=== PATIENT | female | born 2000 | race Caucasian/White ===

== ENCOUNTER 2023-06-05 12:49 | Emergency (ER) | payer OTHER, SELFPAY ==
--- NOTE | ~2023-06-05 | XR_ITS ---
EXAMINATION: XR ABDOMEN KUB CLINICAL INDICATION: Constipated, left upper quadrant abdominal pain COMPARISON: None available. TECHNIQUE: AP view of the abdomen. FINDINGS: The bowel gas pattern is normal with no evidence of ileus or obstruction. No unusual soft tissue calcifications are noted. The bones are unremarkable. XR/XR KUB IMPRESSION: Normal abdominal radiographs.
[2023-06-05 12:59] VITALS: BP 137/77; PULSE 71; RESP 16; TEMP 36.6; O2SAT 99; BMI 36.3
--- NOTE | 2023-06-05 12:59 | ED.GENADULT ---
HPI - General Adult General Chief complaint: Abdominal Pain Stated complaint: abd pain Time Seen by Provider: 06/05/23 13:17 Source: patient and family Mode of arrival: ambulatory History of Present Illness HPI narrative: 22-year-old female comes in with intermittent left upper quadrant pain and nausea since this morning, but this is been an ongoing problem for a couple of days and she was seen at [place] last week for constipation, given a series of stool softeners but states that she has not had a bowel movement since . She otherwise denies any fever, chills, urinary symptoms. Related Data Allergies Allergy/AdvReac Type Severity Reaction Status Date / Time Penicillins [PCN] Allergy Unknown Verified 06/05/23 12:59 Review of Systems Review of Systems: Pertinent positives and negatives as stated in HPI [facility] Past Medical History Source: nursing notes reviewed Social History Social History Advance Directives: No Advance Directives Information Provided: No Physical Exam ED Vital Signs: Vital Signs - 24 hr 06/05/23 12:59 06/05/23 15:32 Temperature 97.9 F 99.1 F Pulse Rate 71 66 Respiratory Rate 16 18 Blood Pressure 137/77 138/68 Pulse Oximetry 99 97 Oxygen Delivery Method Room Air Room Air BMI result Body Mass Index 36.3 VITAL SIGNS: Reviewed. GENERAL: Well developed, well nourished, in no acute distress. HEAD: Normocephalic/atraumatic EYES: PERRLA, EOMI LUNGS: Normal breath sounds. No adventitious sounds or accessory muscle use. SpO2<99> CARDIOVASCULAR: Regular rate and rhythm without noted murmurs ABDOMEN: Soft, generalized discomfort, not peritonitic, non-distended with bowel sounds. MUSCULOSKELETAL: No tenderness, deformities, or effusions noted on gross inspection. EXTREMITIES: No cyanosis, clubbing or edema. SKIN: Inspection of the skin reveals no rashes NEUROLOGIC: Alert and oriented x 4. Strength and sensation to light touch were grossly intact x 4. Course Course Course Narrative: This is a rapid medical exam: Additional HPI, ROS, PE not included below will be deferred to primary provider. Patient is a 22-year-old female presenting to the emergency department with complaint of LUQ abdominal pain. Was seen at [place] for lower abdominal pain, told she was constipated, had an enema there and was prescribed stool softners but still has not had a normal bowel movement. Today developed the LUQ pain with associated nausea, denies vomiting. Plan: labs, UA, KUB Medications Administered Discontinued Medications Generic Name Dose Route Start Last Admin Trade Name Rickey PRN Reason Stop Dose Admin Sodium Chloride 1,000 mls @ 999 mls/hr 06/05/23 13:45 06/05/23 15:25 Ns IV 06/05/23 14:45 Infused .Q1H1M JAYLENE Infusion Medical Decision Making Medical Decision Making [facility] Narrative: 22-year-old female with history and clinical presentation, DDX: Constipation/fecal impaction, low clinical suspicion for intra-abdominal infectious etiology. I reviewed all investigations and hematologic indices are negative for leukocytosis/left shift/anemia/thrombocytopenia. Chemistry indices do not demonstrate an RENETTA or electrolyte/liver enzyme derangements. Beta hCG is undetectable. Urinalysis without evidence of UTI. KUB does not demonstrate evidence to suggest significant stool burden and there is a normal bowel-gas pattern. I did discuss with the patient and her family member at bedside the results and she is otherwise discharged home with presumptive side effects from current menstruation but not ruling out the possibility of an endometriosis. Differential Diagnosis Differential Diagnoses: The differential diagnosis associated with the presentation includes Please see the discussion above Admission/Observation Consideration of admission/observation: Escalation of care including admission/observation considered Please see the discussion above Lab Data MDM Lab Attestation statement: I reviewed the patient's lab results. Please see the discussion above 06/05/23 13:42 06/05/23 13:42 Labs: Lab Results 06/05/23 06/05/23 Range/Units 13:42 15:15 WBC 7.3 (4.8-10.8) X10*3/uL RBC 4.69 (4.20-5.50) X10*6/uL Hgb 14.6 (12.0-16.0) g/dl Hct 41.9 (37.0-47.0) % MCV 89.3 (80.0-98.0) fL MCH 31.1 (27.0-33.0) pg MCHC 34.8 (31.0-35.0) g/dl RDW 11.9 (11.0-16.0) % Plt Count 270 (160-400) X10*3/uL MPV 11.9 (9.4-12.3) fL Immature Gran % (Auto) 0.3 (0.0-0.4) % Neut % (Auto) 70.7 (45-73) % Lymph % (Auto) 23.5 (20-40) % [place] % (Auto) 5.0 (2-11) % Eos % (Auto) 0.1 (0-4) % Baso % (Auto) 0.4 (0-2) % Lymph # (Auto) 1.7 (1.2-4.9) X10*3/uL [place] # (Auto) 0.4 (0.1-1.2) X10*3/uL Eos # (Auto) 0.0 (0.0-0.4) X10*3/uL Baso # (Auto) 0.0 (0.0-0.2) X10*3/uL Abs Immat Gran (auto) 0.02 (0.00-0.03) X10*3/uL Absolute Neuts (auto) 5.2 (2.0-8.3) x10*3/uL Absolute Nucleated RBC 0.000 (0.0-0.012) X10*3/uL Nucleated RBC % (auto) 0.0 (0.0-0.2) /100WBC Sodium 139 (135-145) mmol/L Potassium 3.9 (3.3-5.1) mmol/L Chloride 109 H (96-108) mmol/L Carbon Dioxide 22 (22-29) mmol/L Anion Gap 12 (12-20) BUN 8 L (9-16) mg/dL Creatinine 0.80 (0.5-1.4) mg/dL Estim Creat Clear Calc 121.9 Estimated GFR > 60 Random Glucose 99 (60-115) mg/dL Calcium 9.5 (8.4-10.2) mg/dL Total Bilirubin 0.6 (0.0-1.0) mg/dL AST 26 (5-31) U/L ALT 41 H (0-31) U/L Alkaline Phosphatase 48 (39-117) U/L Total Protein 8.4 H (6.5-8.0) g/dL Albumin 4.4 (3.5-5.0) g/dL Beta HCG, Quant < 2 mIU/mL Urine Color Yellow Urine Appearance Clear Urine pH 5.5 (5.0-9.0) Ur Specific [place] 1.010 (1.005-1.025) Urine Protein Negative (Neg-Trace) mg/dL Urine Glucose (UA) Negative (Negative) mg/dL Urine Ketones Negative (Negative) mg/dL Urine Blood Large (3+) H (Negative) Urine Nitrite Negative (Negative) Ur Leukocyte Esterase Negative (Negative) Urine RBC >20 H (0-2) /HPF Urine WBC 0-5 (0-5) /HPF Ur Squamous Epith Cells 0-2 (0-2) /HPF Urine Bacteria None Seen (None Seen) Hyaline Casts 0-2 (0-2) /LPF Radiology Impression Discussion of test interpretation with radiology: I have reviewed the radiologist's reading. Radiologist Impression: Please see the discussion above Critical Care Time Critical Care Time Critical Care Time: Yes Total Critical Care Time: 30 Attestation: I personally attest to this time spent taking care of the patient. Discharge Plan Discharge Clinical Impression: Abdominal discomfort Patient Disposition: Home, Self-Care Instructions: Abdominal Pain (ED) Additional Instructions: 1. Please stop all of the laxatives. Try to manage any constipation with dietary changes. 2. Follow-up with your primary care doctor on Wednesday morning. Return to the ER for any worsening symptoms. Referrals: Magali Duran NP [Primary Care Provider] -
[2023-06-05] MEDS: 0.9 % Sodium Chloride 1,000 ML 999 ML IV (13:43)
--- NOTE | 2023-06-05 13:46 | PC.NURSE ---
resting quietly in room. iv established, labs drawn and sent. call pitts within reach, fluids infusing.
[2023-06-05 13:48] LABS: MANUAL DIFF FLAG NO
[2023-06-05 13:53] LABS: Basophils Percent Auto 0.4 % (0-2); Eosinophils Percent Auto 0.1 % (0-4); Hematocrit 41.9 % (37.0-47.0); Hemoglobin 14.6 g/dl (12.0-16.0); Imm Gran Abs Auto 0.02 X10*3/uL (0.00-0.03); Imm Gran Pct Auto 0.3 % (0.0-0.4); Lymphocytes Absolute Auto 1.7 X10*3/uL (1.2-4.9); Lymphocytes Percent Auto 23.5 % (20-40); Mean Corpuscular HGB Conc 34.8 g/dl (31.0-35.0); Mean Corpuscular Hemoglobin 31.1 pg (27.0-33.0); Mean Corpuscular Volume 89.3 fL (80.0-98.0); Mean Platelet Volume 11.9 fL (9.4-12.3); Monocytes Absolute Auto 0.4 X10*3/uL (0.1-1.2); Neutrophils Absolute Auto 5.2 x10*3/uL (2.0-8.3); Neutrophils Percent Auto 70.7 % (45-73); Platelet Count 270 X10*3/uL (160-400); Red Blood Count 4.69 X10*6/uL (4.20-5.50); Red Cell Distribution Width 11.9 % (11.0-16.0); White Blood Count 7.3 X10*3/uL (4.8-10.8)
[2023-06-05 14:10] LABS: Alanine Aminotransferase 41 U/L (0-31); Albumin Level 4.4 g/dL (3.5-5.0); Alkaline Phosphatase 48 U/L (39-117); Anion Gap 12 (12-20); Aspartate Amino Transferase 26 U/L (5-31); Bilirubin Total 0.6 mg/dL (0.0-1.0); Blood Urea Nitrogen 8 mg/dL (9-16); Calcium 9.5 mg/dL (8.4-10.2); Carbon Dioxide 22 mmol/L (22-29); Chloride 109 mmol/L (96-108); Creatinine Clr Calc Pharmacy 121.9; Estimated Glomerular Filt Rate > 60; Glucose Random 99 mg/dL (60-115); Potassium 3.9 mmol/L (3.3-5.1); Sodium 139 mmol/L (135-145); Total Protein 8.4 g/dL (6.5-8.0)
[2023-06-05 14:17] LABS: HCG Quantitative < 2 mIU/mL
[2023-06-05 15:32] VITALS: BP 138/68; PULSE 66; RESP 18; TEMP 37.3; O2SAT 97
[2023-06-05 15:33] LABS: Appearance Urine Clear; Color Urine Yellow; Glucose Urine UA Negative (Negative); Leukocyte Esterase Urine Negative (Negative); Nitrite Urine Negative (Negative); PH 5.5 (5.0-9.0); UMIC TRIGGER UACC YES; Urine Blood Large (3+) (Negative); Urine Ketones Negative (Negative); Urine Protein Negative (Neg-Trace)
[2023-06-05 15:36] LABS: Bacteria Urine None Seen (None Seen); Hyaline Casts Urine 0-2 /LPF (0-2); RBC Urine >20 /HPF (0-2); Squamous Epithelial Cell Urine 0-2 /HPF (0-2); WBC Urine 0-5 /HPF (0-5)
== END 2023-06-05 16:50 | disposition home or self-care (01) ==
PROVIDERS: Registered Nurse Emergency; Emergency Provider Student in an Organized Health Care Education/Training Program; PCP Nurse Practitioner Family
DX: R10.12 Left upper quadrant pain (principal)
CPT/HCPCS: 36415; 74018; 80053; 81001; 84702; 85025; 96360; 96361; 99284; 99285

== ENCOUNTER 2023-07-19 20:05 | Emergency (ER) | payer OTHER, SELFPAY ==
--- NOTE | 2023-07-19 | ECG_ITS ---
Test Reason : CHEST PAIN Blood Pressure : / mmHG Vent. Rate : 071 BPM Atrial Rate : 071 BPM P-R Int : 172 ms QRS Dur : 096 ms QT Int : 414 ms P-R-T Axes : 030 017 025 degrees QTc Int : 449 ms Normal sinus rhythm with sinus arrhythmia Nonspecific T wave abnormality Abnormal ECG No previous ECGs available Referred By: Generic ED Physician Electronically Signed By:ES MACDONALD
--- NOTE | 2023-07-19 20:20 | MHC.EDTECH ---
PATIENT IS REQUESTING A BED IN ORDER TO DRAWN HER LABS ,RN IN TRIAGE IS AWARE
[2023-07-19 20:22] VITALS: BP 148/82; PULSE 63; RESP 18; TEMP 36.9; O2SAT 99; BMI 34.3
[2023-07-19 20:34] VITALS: PULSE 81; RESP 16; O2SAT 100
[2023-07-19 21:09] LABS: Influenza A PCR NEGATIVE (Negative); Influenza B PCR NEGATIVE (Negative); Resp Syncy Virus RNA Qual PCR NEGATIVE (Negative); SARS COV2 PCR INHOUSE NEGATIVE (Negative)
[2023-07-19 21:25] LABS: MANUAL DIFF FLAG NO
[2023-07-19 21:28] LABS: Hematocrit 42.2 % (37.0-47.0); Hemoglobin 14.5 g/dl (12.0-16.0); Red Blood Count 4.78 X10*6/uL (4.20-5.50); White Blood Count 8.7 X10*3/uL (4.8-10.8)
--- NOTE | 2023-07-19 21:36 | ED_ITS ---
HPI - Chest Pain General Chief Complaint: Chest Pain Stated Complaint: chest pain Time Seen by Provider: 07/19/23 21:28 Source: patient Mode of arrival: ambulatory Limitations: no limitations History of Present Illness HPI narrative: Patient comes to the emergency room complaining of heart rate that has been intermittently low and high . Patient states that she has mild chest pain, no shortness of breath. Patient denies being sick lately, no URI or UTI symptoms, no nausea vomiting or diarrhea. Related Data Allergies Allergy/AdvReac Type Severity Reaction Status Date / Time Penicillins [PCN] Allergy Unknown Verified 07/19/23 20:21 Review of Systems 2 Review of Systems: Constitutional : No Weight loss, No Fever, No Chills, No Night Sweats, No Fatigue, No Malaise ENT/Mouth : No Hearing loss, No Ear Pain, No Nasal Congestion, No Sinus Pain, No Hoarseness, No sore throat, No Rhinorrhea, No Swallowing Difficulty Eyes: No Eye Pain, No Swelling, No Redness, No Foreign Body, No Discharge, No Vision Changes Cardiovascular : Complaining of mild Chest Pain, No SOB, No Dyspnea on Exertion, No Orthopnea, No Edema, complaining of low heart rate and tachycardia Respiratory : No Cough, No Sputum, No Wheezing, No Smoke Exposure, No Dyspnea Gastrointestinal : No Nausea, No Vomiting, No Diarrhea, No Constipation, No abdominal Pain, No Hematochezia, No Melena Genitourinary : no irregular bleeding, No Dysuria, No Urinary Frequency, No Hematuria, No Urinary Incontinence, No Urgency, No Flank Pain, No Urinary Flow Changes, No Hesitancy Musculoskeletal : No joint pain, No Myalgias, No Joint Swelling Skin : No Skin Lesions, No rash Neuro : No Weakness, No Numbness, No Paresthesias, No Loss of Consciousness, No Dizziness, No Headache Psych : No Anxiety/Panic, No Depression, No SI/HI/AH/VH, No Social Issues, Heme/Lymph: No Bruising, No Bleeding,No Lymphadenopathy Endocrine : No Polyuria, No Polydipsia, No Temperature Intolerance PMFSH Social History Social History Advance Directives: No Advance Directives Information Provided: No Physical Exam 2 Vital Signs: Vital Signs: Last Vital Signs Temp 98.5 F 07/19/23 20:22 Pulse 81 07/19/23 20:34 Resp 16 07/19/23 20:34 BP 148/82 H 07/19/23 20:22 Pulse Ox 100 07/19/23 20:34 O2 Del Method Room Air 07/19/23 20:34 BMI result Body Mass Index 34.3 Const: Other: Appearance: Alert. Oriented X3. No acute distress. Eyes: Pupils equal, round and reactive to light. ENT: Pharynx normal. Neck: Normal inspection. Neck supple. No lymph nodes noted. No crepitus CVS: Normal heart rate and rhythm. Pulses normal. Normal S1 and S2 Respiratory: No respiratory distress. Breath sounds normal. No Wheezing. No rales Abdomen: Soft and nontender. No rigidity. No distention. Skin: Skin warm and dry. Normal skin color. Normal skin turgor. Extremities: No lower extremity edema. No Lacerations. No Rash Neuro: Oriented X 3. No motor deficit. No sensory deficit. Moving all extremities. No slurred speech. CN 2 through 12 grossly intact Psych: calm, cooperative, normal affect Course Course Course Narrative: -I was informed by the patient's nurse that patient nearly passed out with the thought that she was going to get her blood drawn Medications Administered Discontinued Medications Generic Name Dose Route Start Last Admin Trade Name Freq PRN Reason Stop Dose Admin Potassium Chloride 60 meq 07/19/23 22:17 07/19/23 22:28 Potassium Chloride Packet 20 Meq Packet PO 07/19/23 22:18 60 meq ONCE ONE Administration Medical Decision Making Medical Decision Making [facility] Narrative: -my interpretation of labs: Normal hematology, chemistry shows a potassium of 3.1, normal troponin -patient's potassium was repleted p.o. -my interpretation of EKG: Normal sinus rhythm, no ST segment depression or elevation, nonspecific T-wave inversion in V1 V2, QTC 449 -at this time, patient asymptomatic. -patient was in the monitor, throughout the entire ED stay, patient was not tachycardic or bradycardic -I discussed with the patient and her mother who is at bedside that if the patient continues having arrhythmias, unclear heart , a referral for Cardiology for a Holter monitor through her primary care physician would be beneficial Differential Diagnosis Differential Diagnoses: The differential diagnosis associated with the presentation includes (Anxiety, palpitations, faulty apple watch monitor) Lab Data [facility] Lab Attestation statement: I reviewed the patient's lab results. 07/19/23 21:22 07/19/23 21:22 Labs: Lab Results 07/19/23 07/19/23 Range/Units 20:20 21:22 WBC 8.7 (4.8-10.8) X10*3/uL RBC 4.78 (4.20-5.50) X10*6/uL Hgb 14.5 (12.0-16.0) g/dl Hct 42.2 (37.0-47.0) % MCV 88.3 (80.0-98.0) fL MCH 30.3 (27.0-33.0) pg MCHC 34.4 (31.0-35.0) g/dl RDW 11.8 (11.0-16.0) % Plt Count 285 (160-400) X10*3/uL MPV 11.4 (9.4-12.3) fL Immature Gran % (Auto) 0.2 (0.0-0.4) % Neut % (Auto) 65.2 (45-73) % Lymph % (Auto) 29.0 (20-40) % [place] % (Auto) 5.3 (2-11) % Eos % (Auto) 0.1 (0-4) % Baso % (Auto) 0.2 (0-2) % Lymph # (Auto) 2.5 (1.2-4.9) X10*3/uL [place] # (Auto) 0.5 (0.1-1.2) X10*3/uL Eos # (Auto) 0.0 (0.0-0.4) X10*3/uL Baso # (Auto) 0.0 (0.0-0.2) X10*3/uL Abs Immat Gran (auto) 0.02 (0.00-0.03) X10*3/uL Absolute Neuts (auto) 5.7 (2.0-8.3) x10*3/uL Absolute Nucleated RBC 0.000 (0.0-0.012) X10*3/uL Nucleated RBC % (auto) 0.0 (0.0-0.2) /100WBC Sodium 141 (135-145) mmol/L Potassium 3.1 L D (3.3-5.1) mmol/L Chloride 107 (96-108) mmol/L Carbon Dioxide 26 (22-29) mmol/L Anion Gap 11 L (12-20) BUN 7 L (9-16) mg/dL Creatinine 0.85 (0.5-1.4) mg/dL Estim Creat Clear Calc 111.3 Estimated GFR > 60 Random Glucose 105 (60-115) mg/dL Calcium 10.1 D (8.4-10.2) mg/dL Total Bilirubin 0.7 (0.0-1.0) mg/dL AST 20 (5-31) U/L ALT 44 H (0-31) U/L Alkaline Phosphatase 53 (39-117) U/L Troponin I High Sens < 2.7 (<3.5-17.0) ng/L Total Protein 8.5 H (6.5-8.0) g/dL Albumin 4.8 (3.5-5.0) g/dL Beta HCG, Quant < 2 mIU/mL Influenza Type A (PCR) NEGATIVE (Negative) Influenza Type B (PCR) NEGATIVE (Negative) RSV RNA Qual (PCR) NEGATIVE (Negative) SARS-CoV-2 RNA (RT-PCR) NEGATIVE (Negative) Independent Interpretation I performed an independent interpretation of an: EKG Discharge Plan Discharge Clinical Impression: Atypical chest pain Patient Disposition: Home, Self-Care Instructions: Chest Pain (ED) Additional Instructions: Please follow-up with your primary care physician tomorrow. If you have any worsening or new symptoms, please return to the emergency room or call 911
[2023-07-19 21:48] LABS: Alanine Aminotransferase 44 U/L (0-31); Albumin Level 4.8 g/dL (3.5-5.0); Alkaline Phosphatase 53 U/L (39-117); Anion Gap 11 (12-20); Aspartate Amino Transferase 20 U/L (5-31); Bilirubin Total 0.7 mg/dL (0.0-1.0); Blood Urea Nitrogen 7 mg/dL (9-16); Calcium 10.1 mg/dL (8.4-10.2); Carbon Dioxide 26 mmol/L (22-29); Chloride 107 mmol/L (96-108); Creatinine Clr Calc Pharmacy 111.3; Estimated Glomerular Filt Rate > 60; Glucose Random 105 mg/dL (60-115); Potassium 3.1 mmol/L (3.3-5.1); Sodium 141 mmol/L (135-145); Total Protein 8.5 g/dL (6.5-8.0); Troponin-I High Sensitivity < 2.7 ng/L (<3.5-17.0)
[2023-07-19 21:58] LABS: HCG Quantitative < 2 mIU/mL
[2023-07-19 22:20] LABS: Basophils Percent Auto 0.2 % (0-2); Eosinophils Percent Auto 0.1 % (0-4); Imm Gran Abs Auto 0.02 X10*3/uL (0.00-0.03); Imm Gran Pct Auto 0.2 % (0.0-0.4); Lymphocytes Absolute Auto 2.5 X10*3/uL (1.2-4.9); Mean Corpuscular HGB Conc 34.4 g/dl (31.0-35.0); Mean Corpuscular Hemoglobin 30.3 pg (27.0-33.0); Mean Corpuscular Volume 88.3 fL (80.0-98.0); Mean Platelet Volume 11.4 fL (9.4-12.3); Monocytes Absolute Auto 0.5 X10*3/uL (0.1-1.2); Monocytes Percent Auto 5.3 % (2-11); Neutrophils Absolute Auto 5.7 x10*3/uL (2.0-8.3); Neutrophils Percent Auto 65.2 % (45-73); Platelet Count 285 X10*3/uL (160-400); Red Cell Distribution Width 11.8 % (11.0-16.0)
[2023-07-19] MEDS: Potassium Chloride Packet 20 MEQ PACKET 60 MEQ PO (22:28)
[2023-07-19 23:41] VITALS: BP 124/62; PULSE 73; RESP 20; TEMP 36.7; O2SAT 96
[2023-07-19 23:47] VITALS: BP 124/62; PULSE 73; RESP 20; TEMP 36.7; O2SAT 96
== END 2023-07-19 23:48 | disposition home or self-care (01) ==
PROVIDERS: Emergency Provider Emergency Medicine
DX: R07.89 Other chest pain (principal); Z11.52 Encounter for screening for COVID-19; Z20.828 Contact with and (suspected) exposure to other viral communicable diseases
CPT/HCPCS: 0241U; 36415; 80053; 84484; 84702; 85025; 93005; 99283; 99285

== ENCOUNTER → 2023-07-19 20:09 | Outpatient (BNV) | payer OTHER, SELFPAY | PROVIDERS: Emergency Provider Emergency Medicine; Visit Provider Internal Medicine | DX: R07.9 Chest pain, unspecified (principal) | CPT/HCPCS: 93010 ==

== ENCOUNTER 2023-08-26 07:23 | Outpatient (AMB) | payer OTHER, SELFPAY ==
--- NOTE | 2023-08-26 07:24 | A.OFFVIS_ITS ---
Vital Signs 08/26/23 07:45 Height 5 ft 4 in Weight 193 lb BMI 33.1 BP 115/66 Blood Pressure Location Lt brachial Position Sitting Pulse 73 Intake Visit Reasons: Constipation/ abd pain Intake Note: Patient new consult for abdominal pain and constipation Patient cc: lower and upper abdominal pain with bloating and painful gasses, constipation on and off, patient went to ED due her abdominal pain and they did a X ray and abnormal lab work. [employer] Room Operator Required: No Accompanied by: Mother Allergies Penicillins [PCN] Allergy (Verified 02/11/24 09:21) Unknown HPI HPI Constipation/ abd pain: Details: GI clinic visit for this 22Y F for evaluation of abdominal pain and constipation LABS IN [facility] : Reviewed IMAGING STUDIES: 06/05/23 KUB SHOWED: The bowel gas pattern is normal with no evidence of ileus or obstruction. No unusual soft tissue calcifications are noted. The bones are unremarkable. ENDOSCOPIC STUDIES: TODAY'S VISIT: Had intermittent constipation More frequent since Jun, 2023. Usually 1-2 times a day with intermittent straining with hard stools Takes Miralax once a day prn Can have lower abdominal/Pelvic area pain 4-6 or 7/10. Has pain atleast once a day and can be sharp and twisting. Pain goes away if she is able to have a BM Can have pain with eating or random. Uses castor oil and heat on the skin which helps the pain Can be related to her periods - tend to become constipated at the begining of her period On GFD x 2 years - consistent sharp pain, jt pains and skin problems. Lost 13 lbs since Jun, 2023 - cut back on snacking and processed foods Patient denies symptoms of heartburn, dysphagia, Occasional nausea and denies vomiting. Denies recent black stools or rectal bleeding. Patient denies major cardiac or pulmonary problems, loud snoring or sleep apnea Denies problems with anesthesia in the past. Denies being on chronic anticoagulation. Patient denies known family history of colon polyps, colon cancer or other GI malignancies. Dad has constipation. Maternal GM being evaluated for possible colon cancer. PAST GI HISTORY BY REVIEW OF MEDICAL RECORDS: 06/05/23 PT SEEN AT [facility] [place]: 22-year-old female comes in with intermittent left upper quadrant pain and nausea since this morning, but this is been an ongoing problem for a couple of days and she was seen at [place] last week for constipation, given a series of stool softeners but states that she has not had a bowel movement since . She otherwise denies any fever, chills, urinary symptoms. 22-year-old female with history and clinical presentation, DDX: Constipation/fecal impaction, low clinical suspicion for intra-abdominal infectious etiology. I reviewed all investigations and hematologic indices are negative for leukocytosis/left shift/anemia/thrombocytopenia. Chemistry indices do not demonstrate an RENETTA or electrolyte/liver enzyme derangements. Beta hCG is undetectable. Urinalysis without evidence of UTI. KUB does not demonstrate evidence to suggest significant stool burden and there is a normal bowel-gas pattern. I did discuss with the patient and her family member at bedside the results and she is otherwise discharged home with presumptive side effects from current menstruation but not ruling out the possibility of an endometriosis PFSH Family History Father Heart disease Diabetes Paternal Grandfather Diabetes Heart disease Paternal Grandmother Diabetes Heart disease Maternal Grandfather Diabetes Heart disease Maternal Grandmother Heart disease Diabetes Social History Household Members: Family Housing: House Alcohol intake: current Alcohol intake frequency: holidays/special occasions only Patient Tobacco Use Status: Never used Tobacco e-Cigarette/Vaping Use: Never Used Current occupational status: employed Cognitive needs: No Hearing needs: No Vision needs: Yes Review of Systems Const Reports fatigue, Denies fever(s), Denies headache(s) and Reports weight loss (15 lbs) Eyes Denies eye discharge and Denies irritation ENT Reports Normal hearing present, Denies dysphagia, Denies dizziness and Denies headache(s) Card Reports chest pain, Denies leg edema, Denies dyspnea on exertion and Reports other (palpitations) Resp Denies cough, Denies dyspnea on exertion and Denies wheezing GI Reports abdominal pain, Reports bloating, Denies change in bowel habits, Reports constipation, Denies dysphagia, Denies heartburn, Reports diarrhea and Reports nausea Denies difficulty voiding, Denies dysuria and Reports other (LMP 08/09/23) Musc Denies back pain and Reports arthralgias Skin/Breast Denies pruritus, Reports rash and Denies jaundice Neuro Reports Normal hearing present, Denies Abnormal speech present, Denies dizziness, Denies headache(s) and Denies seizure-like activity Psych Reports anxiety, Denies depression and Denies panic attacks Endo Denies cold intolerance, Reports fatigue, Denies flushing and Denies heat intolerance [place]/Lymph Denies easy bleeding and Denies easy bruising Aller/Immun Denies wheezing Physical Exam Vital Signs: Last Vital Signs Pulse 73 08/26/23 07:45 BP 115/66 08/26/23 07:45 BMI result Body Mass Index 33.1 Const General: healthy appearing and no acute distress Nutritional Appearance: obese Orientation/consciousness: patient oriented x3 Limitations: no limitations HEENT Head: Yes normal to inspection Ears: hearing grossly normal bilaterally Eyes Sclerae: sclerae normal Pupils: Equal, round and reactive pupils present Neck Neck: Yes normal visual inspection Chest Chest palpation & inspection: normal inspection of the chest Resp Effort & Inspection: normal respiratory effort Auscultation: clear to auscultation bilaterally Cardio Palpation: normal PMI Rate: regular rate Rhythm: regular rhythm Heart sounds: S1 normal heart sound present, S2 normal heart sound present and no murmurs GI Palpation (GI): Soft to palpation, nontender and No hepatosplenomegaly present Auscultation: normal bowel sounds Rectal Exam - Female: deferred Skin General skin exam: no rashes or lesions noted Neuro General: patient oriented x3, gait normal and moves all extremities Cranial nerves: Yes Equal, round and reactive pupils present and Yes Normal hearing present Speech: No Abnormal speech present Psych Appearance: grossly normal Mental Status: mental status grossly normal Assessment & Plan Assessment & Plan (1) Abdominal pain: Code(s): R10.9 - Unspecified abdominal pain Category: Medical (2) Chronic constipation: Code(s): K59.09 - Other constipation Category: Medical (3) Elevated LFTs: Code(s): R79.89 - Other specified abnormal findings of blood chemistry Category: Medical Plan Initial GI clinic visit for this 22 YF with lower abdominal and pelvic pain associated with intermittent constipation More frequent since Jun, 2023. Takes Miralax once a day prn On GFD x 2 years - consistent sharp pain, jt pains and skin problems. Lost 13 lbs since Jun, 2023 - cut back on snacking and processed foods Pt's symptoms are likely due to constipation pre-dominent IBS. She was advised to take senna for constipation. If symptoms persist, she will be scheduled for a colonoscopy for further evaluation. Elevated LFTs -likely due to fatty liver. I will check Hepatitis serologies and an Abd US FU in 6 weeks Orders: Orders Hepatitis B Profile 08/26/23 R10.9 - Unspecified abdominal pain, K59.09 - Other constipation, R79.89 - Other specified abnormal findings of blood chemistry C Reactive Protein 08/26/23 R10.9 - Unspecified abdominal pain, K59.09 - Other constipation, R79.89 - Other specified abnormal findings of blood chemistry Hepatitis C Antibody 08/26/23 R10.9 - Unspecified abdominal pain, K59.09 - Other constipation, R79.89 - Other specified abnormal findings of blood chemistry Liver Panel 08/26/23 R10.9 - Unspecified abdominal pain, K59.09 - Other constipation, R79.89 - Other specified abnormal findings of blood chemistry US abdomen complete 08/26/23 R79.89 - Other specified abnormal findings of blood chemistry, R10.9 - Unspecified abdominal pain Medications: New sennosides-docusate sodium 8.6-50 mg (Senokot-S) 1 tab-cap PO BEDTIME 60 tabs 1RF 60 days K59.09 - Other constipation Coding Level of Care Code New Pt Level 4 (37867) Diagnoses Abdominal pain R10.9 Chronic constipation K59.09 Elevated LFTs R79.89 Time Spent (min) 25
[2023-08-26 07:45] VITALS: BP 115/66; PULSE 73; BMI 33.1
== END 2023-08-26 09:01 | disposition home or self-care (01) ==
PROVIDERS: Visit Provider Internal Medicine Gastroenterology
DX: R10.9 Unspecified abdominal pain (principal); K59.09 Other constipation; R79.89 Other specified abnormal findings of blood chemistry
CPT/HCPCS: 99499

== ENCOUNTER → 2023-08-26 07:23 | Outpatient (BNVA) | payer OTHER, SELFPAY | PROVIDERS: Visit Provider Internal Medicine Gastroenterology ==

== ENCOUNTER 2023-09-13 08:00 | Outpatient (REF) | payer OTHER, SELFPAY ==
--- NOTE | ~2023-09-13 | US_ITS ---
EXAMINATION: US ABDOMEN COMPLETE CLINICAL INFORMATION: Other specified abnormal findings of blood chemistry. Elevated liver enzymes. Abdominal pain. COMPARISON: None. TECHNIQUE: Real-time imaging of the abdominal viscera. FINDINGS: PANCREAS: Normal. ABDOMINAL AORTA: The proximal, mid, and distal segments are normal in caliber. INFERIOR VENA CAVA: Visualized portions are normal. LIVER: The liver is normal in size. The liver contour is normal. There is diffuse increased liver parenchymal echogenicity, consistent with hepatic steatosis. There are some sparing along the gallbladder. No focal hepatic lesion. There is no intrahepatic biliary duct dilatation seen. GALLBLADDER: Normal. The gallbladder is physiologically distended without evidence of stones, sludge, polyps, wall thickening or pericholecystic fluid. COMMON BILE DUCT: Normal in caliber measuring 0.4 cm in diameter. RIGHT KIDNEY: Normal. No hydronephrosis. No renal calculi or focal parenchymal lesions. The kidney measures 11.1 cm in maximum dimension. LEFT KIDNEY: Normal. No hydronephrosis. No renal calculi or focal parenchymal lesions. The kidney measures 10.5 cm in maximum dimension. SPLEEN: Normal. The spleen measures 10.6 cm in maximum dimension. FREE FLUID: None. US/US abdomen complete IMPRESSION: Hepatic steatosis. No explanation for abdominal pain.
== END 2023-09-13 08:01 | disposition home or self-care (01) ==
LOC: HO.US 08:00
PROVIDERS: PCP Nurse Practitioner Family; Visit Provider Internal Medicine Gastroenterology
DX: R10.9 Unspecified abdominal pain (principal); R79.89 Other specified abnormal findings of blood chemistry
CPT/HCPCS: 76700

== ENCOUNTER 2024-01-05 12:56 | Outpatient (REF) | payer OTHER, SELFPAY ==
--- NOTE | ~2024-01-05 | XR_ITS ---
EXAMINATION: XR SHOULDER, LEFT CLINICAL INFORMATION: Left shoulder pain. COMPARISON: None available. TECHNIQUE: AP external rotation, Grashey, scapular Y, and axillary views of the left shoulder. FINDINGS: The bones and soft tissues are normal. No fracture. Glenohumeral and acromioclavicular alignment is anatomic with normal joint space. No abnormal soft tissue calcifications. XR/XR shoulder LT min 2V IMPRESSION: Unremarkable examination. Electronically signed by: Kevin Almaguer MD 01/20/2024 08:34 PM EDT
[2024-01-05 14:45] LABS: Alanine Aminotransferase 29 U/L (0-31); Albumin Level 4.7 g/dL (3.5-5.0); Alkaline Phosphatase 48 U/L (39-117); Aspartate Amino Transferase 17 U/L (5-31); Bilirubin Direct 0.3 mg/dL (0.0-0.5); Bilirubin Total 0.7 mg/dL (0.0-1.0); C Reactive Protein < 0.10 mg/dL (< or = 0.50); Total Protein 8.1 g/dL (6.5-8.0); Uric Acid 5.7 mg/dL (2.4-5.7)
[2024-01-05 14:54] LABS: Rheumatoid Factor < 13.0 IU/mL (<15.0)
[2024-01-05 14:58] LABS: Erythrocyte Sedimentation Rate 10 MM/HR (0-20)
[2024-01-06 08:08] LABS: HBS Num1 18.36 mIU/mL (0-7.99); HBsAGNum1 0.27 S/CO (0.00-0.99); Hepatitis B Core Antibody Nonreactive (Nonreactive); Hepatitis B Surface Antigen Negative (Negative); ~HepC Num1 0.08 S/CO (0.00-0.79); ~Hepatitis B Surface Antibody REACTIVE (Nonreactive); ~Hepatitis C Antibody Nonreactive (Nonreactive)
[2024-01-06 18:53] LABS: Lyme Abs Screen <0.90 index
[2024-01-10 11:50] LABS: Anti Nuclear Antibody Screen NEGATIVE (NEGATIVE)
== END 2024-01-05 12:57 | disposition home or self-care (01) ==
LOC: HO.XRAY 12:56
PROVIDERS: Internal Medicine Gastroenterology; PCP Internal Medicine; Visit Provider Psychiatry & Neurology Neurology
DX: R10.9 Unspecified abdominal pain (principal); K59.09 Other constipation; R79.89 Other specified abnormal findings of blood chemistry; M25.512 Pain in left shoulder
CPT/HCPCS: 36415; 73030; 80076; 84550; 85652; 86038; 86140; 86431; 86617; 86618; 86704; 86706; 86803; 87340

== ENCOUNTER 2024-02-11 09:11 | Outpatient (AMB) | payer OTHER, SELFPAY ==
[2024-02-11 09:15] VITALS: BP 122/76; PULSE 72; O2SAT 96; BMI 34.1
--- NOTE | 2024-02-11 09:15 | A.OFFPC_ITS ---
Vital Signs 02/11/24 09:15 Height 5 ft 4 in Weight 198 lb 8 oz BMI 34.1 BP 122/76 Blood Pressure Location Lt brachial Position Sitting Pulse 72 Pulse Source Pulse Oximeter Pulse Oximetry (%) 96 Oxygen Delivery Method Room Air Intake Visit Reasons: Annual PE Allergies Penicillins [PCN] Allergy (Verified 02/11/24 09:21) Unknown Medication List - Last Reconciled 02/11/24 by Jacky Hickey MD famotidine 40 mg PO DAILY Tobacco use date assessed: 02/11/24 Dental Screening Dental Screen Date: 02/11/24 Did you have a dental visit in the last 12 months?: Yes Did you have a dental problem in the last 6 months where you did not have access to dental care?: No Was dental information given to patient?: Patient has dentist HPI Annual PE HPI Details Patient is 23-year-old female came in today for establish care visit and physical exam History of constipation , doing well at this time History of left shoulder pain which started 1 month ago, patient has been evaluated by [facility] Prednisone script was given and physical therapy was ordered, however patient did not take the medication or the physical therapy Continued to have discomfort which feels tight when she lifts her arm She says that she will start the physical therapy at home History of eczema which flares up with certain foods Like peanut, tomato, dairy, if she avoids those foods then rash is manageable I have sent clobetasol cream for the patient, patient is to start taking that at night for a week and then stop if rash flare-up again she may repeat the cycle Due to food sensitivity patient continued to have cramping in her abdomen She says that sometimes the cramping is close to her periods, she has a diagnosis of endometriosis as well from previous providers However patient does not want to see an OBGYN Patient admits to feeling anxious, and also have panic attack sometimes Which present with tightness in her chest, palpitations, and difficulty breathing She is willing to start medication for that I have sent Lexapro 5 mg tablet for the patient Labs done in July and recently reviewed Patient says that she had full set of labs done May of this year She has provided me with those records, I will review that as well. BMI is elevated we will discuss that at her next visit Follow-up 6 weeks PFS Family History Father Heart disease Diabetes Paternal Grandfather Diabetes Heart disease Paternal Grandmother Diabetes Heart disease Maternal Grandfather Diabetes Heart disease Maternal Grandmother Heart disease Diabetes Social History Household Members: Family Housing: House Alcohol intake: current Alcohol intake frequency: holidays/special occasions only Patient Tobacco Use Status: Never used Tobacco e-Cigarette/Vaping Use: Never Used Current occupational status: employed Cognitive needs: No Hearing needs: No Vision needs: Yes Questionnaire PHQ-9 Over the last 2 weeks, how often have you been bothered by any of the following problems? 1. Little interest or pleasure in doing things: several days 2. Feeling down, depressed, or hopeless: not at all 3. Trouble falling or staying asleep, or sleeping too much: several days 4. Feeling tired or having little energy: nearly every day 5. Poor appetite or overeating: not at all 6. Feeling bad about yourself - or that you are a failure or have let yourself or your family down: not at all 7. Trouble concentrating on things, such as reading the newspaper or watching television: more than half the days 8. Moving or speaking so slowly that other people could have noticed. Or the opposite - being so fidgety or restless that you have been moving around a lot more than usual: not at all 9. Thoughts that you would be better off or of hurting yourself in some way: not at all Total score: 7 Depression Screening Interpretation: Negative Depression Screening Done: Yes [id number] - PHQ-9 Billing: Yes Source: Developed by Drs. Hollis Burrell, Tiff Crystal, Ignacio Forbes and colleagues, with an educational yashira from [employer]. Thrive Questionnaire Date Thrive assessed: 02/11/24 I am a: Patient What is your living situation today?: I have a steady place to live Within the past 12 months, did the food you bought not last and you didn't have the money to get more?: Never true Within the past 12 months, did you worry whether your food would run out before you got money to buy more?: Never true Do you have trouble paying for medicines?: No Do you have trouble getting transportation to medical appointments?: No Do you have trouble paying your heating and electricity bill?: No Do you have trouble taking care of your child, family member or friend?: No Do you have trouble with day-to-day activities such as bathing, preparing meals, shopping, managing finances, etc.?: No Are you currently unemployed and looking for a job?: No Are you interested in more education?: No Please select the resources that you would like help with: None Currently or been in a relationship where the following occur: No concerns reported THRIVE Score: 0 AUDIT C Alcohol Use Questionnaire (AUDIT-C) 1. How often do you have a drink containing alcohol?: Never 3. How often do you have six or more drinks on one occasion?: Never Total Score: 0 Score Reviewed/Action Taken: Yes ANTON-7 AMB Questionnaire ANTON-7 Date ANTON - 7 assessed: 02/11/24 Feeling nervous, anxious, or on edge: 3 = Nearly every day Not being able to stop or control worryin = More than half the days Worrying too much about different things: 3 = Nearly every day Trouble relaxin = More than half the days Being so restless that it is hard to sit still: 2 = More than half the days Becoming easily annoyed or irritable: 1 = Several days Feeling afraid as if something awful might happen: 2 = More than half the days Total ANTON-7 score (0-4 normal; 5-9 mild; 10-14 moderate; 15-21 severe): 15 Source: Developed by Drs. Hollis Burrell, Tiff Crystal, Ignacio Forbes and colleagues, with an educational yashira from [employer]. ANTON-7 Assessment Billing ANTON-7 Assessment Tool: ANTON-7 Assessment 32926 Review of Systems Const Denies chills, Denies fever(s) and Denies headache(s) Eyes Denies blurry vision ENT Denies headache(s), Denies nasal discharge, Denies nasal obstruction, Denies odynophagia and Denies sinus pain Card Denies chest pain at rest and Denies chest pain with activity Resp Denies cough and Denies hemoptysis GI Denies diarrhea, Denies odynophagia, Denies vomiting and Denies hematemesis Reports as per HPI Musc Denies abnormal gait Skin/Breast Reports as per HPI Neuro Denies Neuro-related abnormal movements, Denies Abnormal speech present, Denies abnormal gait, Denies headache(s) and Denies Sensory deficit (Neuro) Psych Denies mood swings and Denies paranoia Endo Reports as per HPI Cordell/Lymph Reports as per HPI Aller/Immun Reports as per HPI Physical exam (Primary Care) Vital Signs: Last Vital Signs Pulse 72 02/11/24 09:15 BP 122/76 02/11/24 09:15 Pulse Ox 96 02/11/24 09:15 Oxygen Delivery Method Room Air 02/11/24 09:15 BMI result Body Mass Index 34.1 Tobacco/Smoking Status: Tobacco use Status Tobacco use date assessed 02/11/24 02/11/24 09:23 Patient Tobacco Use Status Never used Tobacco 02/11/24 09:16 e-Cigarette/Vaping Use Never Used 02/11/24 09:23 PHQ-9: PHQ-9 Score PHQ-9: Total score 7 02/11/24 09:49 Depression Screening Interpretation: Negative Thrive Assessment: Date of Thrive Assessment Date Thrive assessed 02/11/24 02/11/24 09:23 Currently or been in a relationship where the following occur: No concerns reported Const General: cooperative, comfortable and no acute distress Orientation/consciousness: patient oriented x3 HENMT Head: Yes normocephalic and Yes atraumatic Eyes General: appearance normal, both eyes and all related structures Pupils: Equal, round and reactive pupils present EOM: EOMs intact bilaterally Neck Neck: Yes supple and No lymphadenopathy Thyroid: Thyroid normal Lymphatic: no lymphadenopathy noted Resp Effort & Inspection: normal respiratory effort and able to speak in complete sentences Auscultation: clear to auscultation bilaterally Cardio Heart sounds: S1 normal heart sound present and S2 normal heart sound present GI Palpation (GI): Soft to palpation and nontender Auscultation: normal bowel sounds General: Yes no CVA tenderness Back/Spine/Pelvis Back: no CVA tenderness Skin Other: Eczematous rash right elbow posterior aspect General skin exam: elasticity normal and turgor normal Neuro General: patient oriented x3 and gait normal Cranial nerves: Yes Equal, round and reactive pupils present Speech: No Abnormal speech present Sensory Exam: No Sensory deficit (Neuro) Coordination: tandem gait normal and Romberg test negative Extrem General: Yes normal exam except as noted and No edema Coding Level of Care Code New Pt Level 4 (40300) Diagnoses Establishing care with new doctor, encounter for Z76.89 Panic anxiety syndrome F41.0 Gastrointestinal food sensitivity T78.1XXA Intrinsic eczema L20.84 Eczema type: intrinsic Chronic left shoulder pain M25.512; G89.29 Class 1 obesity due to excess calories without serious comorbidity with body mass index (BMI) of 34.0 to 34.9 in adult E66.811; E66.09; Z68.34 Body mass index: BMI 34.0-34.9 Obesity classification: adult class 1 (BMI 30 - 34.9) Serious obesity comorbidity presence: without serious comorbidity Endometriosis N80.9 Additional Codes ANTON-7 Assessment Billing - ANTON-7 Assessment Tool: ANTON-7 Assessment 14532 ([id number]) Assessment & Plan Assessment & Plan (1) Establishing care with new doctor, encounter for: Code(s): Z76.89 - Persons encountering health services in other specified circumstances Category: Medical (2) Panic anxiety syndrome: Code(s): F41.0 - Panic disorder [episodic paroxysmal anxiety] Category: Medical (3) Gastrointestinal food sensitivity: Code(s): T78.1XXA - Other adverse food reactions, not elsewhere classified, initial encounter Category: Medical (4) Eczema: Code(s): L30.9 - Dermatitis, unspecified Category: Medical Qualifiers: Eczema type: intrinsic Qualified Code(s): L20.84 - Intrinsic (allergic) eczema (5) Chronic left shoulder pain: Code(s): M25.512 - Pain in left shoulder; G89.29 - Other chronic pain Category: Medical (6) Obesity due to excess calories: Code(s): E66.09 - Other obesity due to excess calories Category: Medical Qualifiers: Body mass index: BMI 34.0-34.9 Obesity classification: adult class 1 (BMI 30 - 34.9) Serious obesity comorbidity presence: without serious comorbidity Qualified Code(s): E66.811 - Obesity, class 1; E66.09 - Other obesity due to excess calories; Z68.34 - Body mass index [BMI] 34.0-34.9, adult (7) Endometriosis: Code(s): N80.9 - Endometriosis, unspecified Category: Medical Plan Patient is 23-year-old female came in today for establish care visit and physical exam History of constipation , doing well at this time History of left shoulder pain which started 1 month ago, patient has been evaluated by [facility] Prednisone script was given and physical therapy was ordered, however patient did not take the medication or the physical therapy Continued to have discomfort which feels tight when she lifts her arm She says that she will start the physical therapy at home History of eczema which flares up with certain foods Like peanut, tomato, dairy, if she avoids those foods then rash is manageable I have sent clobetasol cream for the patient, patient is to start taking that at night for a week and then stop if rash flare-up again she may repeat the cycle Due to food sensitivity patient continued to have cramping in her abdomen She says that sometimes the cramping is close to her periods, she has a diagnosis of endometriosis as well from previous providers However patient does not want to see an OBGYN Patient admits to feeling anxious, and also have panic attack sometimes Which present with tightness in her chest, palpitations, and difficulty breathing She is willing to start medication for that I have sent Lexapro 5 mg tablet for the patient Labs done in July and recently reviewed Patient says that she had full set of labs done May of this year She has provided me with those records, I will review that as well. BMI is elevated we will discuss that at her next visit Follow-up 6 weeks Medications: New escitalopram oxalate (Lexapro) 5 mg PO DAILY 30 tabs 0RF clobetasol 0.05% 1 appl topical BEDTIME 60 grams 2RF 30 days
== END 2024-02-11 09:42 | disposition home or self-care (01) ==
PROVIDERS: PCP Internal Medicine; Visit Provider Internal Medicine
DX: Z76.89 Persons encountering health services in other specified circumstances (principal); F41.0 Panic disorder [episodic paroxysmal anxiety]; T78.1XXA Other adverse food reactions, not elsewhere classified, initial encounter; L20.84 Intrinsic (allergic) eczema; M25.512 Pain in left shoulder; G89.29 Other chronic pain; E66.811 Obesity, class 1; E66.09 Other obesity due to excess calories; Z68.34 Body mass index [BMI] 34.0-34.9, adult; N80.9 Endometriosis, unspecified

== ENCOUNTER → 2024-02-11 09:11 | Outpatient (BNVA) | payer OTHER, SELFPAY | PROVIDERS: PCP Internal Medicine; Visit Provider Internal Medicine | DX: Z00.00 Encounter for general adult medical examination without abnormal findings (principal); F41.0 Panic disorder [episodic paroxysmal anxiety]; T78.1XXA Other adverse food reactions, not elsewhere classified, initial encounter; L20.84 Intrinsic (allergic) eczema; G89.29 Other chronic pain; M25.512 Pain in left shoulder; E66.09 Other obesity due to excess calories; Z68.34 Body mass index [BMI] 34.0-34.9, adult; N80.9 Endometriosis, unspecified | CPT/HCPCS: 96127 ==

== ENCOUNTER → 2024-04-13 08:23 | Outpatient (BNVA) | payer OTHER, SELFPAY | PROVIDERS: PCP Internal Medicine; Visit Provider Internal Medicine ==

== ENCOUNTER 2024-06-06 14:01 | Outpatient (AMB) | payer OTHER, SELFPAY ==
--- NOTE | 2024-06-06 14:02 | MHC.PC.OV ---
Vital Signs 06/06/24 14:07 Height 5 ft 4 in Weight 190 lb 2 oz BMI 32.6 BP 128/80 Blood Pressure Location Rt brachial Position Sitting Pulse 73 Pulse Source Pulse Oximeter Pulse Oximetry (%) 99 Oxygen Delivery Method Room Air Intake Visit Reasons: Follow Up Allergies Penicillins [PCN] Allergy (Verified 02/11/24 09:21) Unknown Medication List - Last Reconciled 06/06/24 by Jacky Hickey MD lorazepam 0.5 mg PO DAILY PRN Tobacco use date assessed: 02/11/24 Dental Screening Dental Screen Date: 02/11/24 HPI Follow Up HPI Details Patient is 23-year-old female with a long history of anxiety and panic attacks Came in today with mother Patient was seen before I did start her on Lexapro which she took it only for 3 days and then stopped because it made her stomach pains worse Patient usually have stomach pain off and on which is unrelated to eating Sometimes in the epigastric area which does respond to Tums and sometimes feel like cramping all over the abdomen We discussed the possibility of acid reflux and IBS I have sent omeprazole 20 mg tablet patient is to start that 1 tablet at night And then introduced dicyclomine 20 minute before meals in a week's time. Once the stomach pains are better Patient is to introduce citalopram at night to control anxiety She has few more tablets of lorazepam, instructed patient to take only half as needed And do not drive especially on the high we or work with machine while taking the lorazepam. We will set up telemedicine visit for follow-up in 4 weeks. [facility] Family History Father Heart disease Diabetes Paternal Grandfather Diabetes Heart disease Paternal Grandmother Diabetes Heart disease Maternal Grandfather Diabetes Heart disease Maternal Grandmother Heart disease Diabetes Social History Household Members: Family Housing: House Alcohol intake: current Alcohol intake frequency: holidays/special occasions only Patient Tobacco Use Status: Never used Tobacco e-Cigarette/Vaping Use: Never Used Current occupational status: employed Cognitive needs: No Hearing needs: No Vision needs: Yes Questionnaire PHQ-9 Over the last 2 weeks, how often have you been bothered by any of the following problems? 1. Little interest or pleasure in doing things: more than half the days 2. Feeling down, depressed, or hopeless: not at all 3. Trouble falling or staying asleep, or sleeping too much: more than half the days 4. Feeling tired or having little energy: more than half the days 5. Poor appetite or overeating: more than half the days 6. Feeling bad about yourself - or that you are a failure or have let yourself or your family down: not at all 7. Trouble concentrating on things, such as reading the newspaper or watching television: nearly every day 8. Moving or speaking so slowly that other people could have noticed. Or the opposite - being so fidgety or restless that you have been moving around a lot more than usual: not at all 9. Thoughts that you would be better off or of hurting yourself in some way: not at all Total score: 11 Depression Screening Interpretation: Positive Depression Screening Follow-up: Existing condition and In treatment Depression Screening Done: Yes Source: Developed by Drs. Hollis Burrell, Tiff Crystal, Ignacio Forbes and colleagues, with an educational yashira from [employer]. Thrive Questionnaire Date Thrive assessed: 06/03/24 I am a: Patient What is your living situation today?: I have a steady place to live Within the past 12 months, did the food you bought not last and you didn't have the money to get more?: Never true Within the past 12 months, did you worry whether your food would run out before you got money to buy more?: Never true Do you have trouble paying for medicines?: No Do you have trouble getting transportation to medical appointments?: No Do you have trouble paying your heating and electricity bill?: No Do you have trouble taking care of your child, family member or friend?: No Do you have trouble with day-to-day activities such as bathing, preparing meals, shopping, managing finances, etc.?: No Are you currently unemployed and looking for a job?: No Are you interested in more education?: No Please select the resources that you would like help with: None Currently or been in a relationship where the following occur: No concerns reported THRIVE Score: 0 AUDIT C Alcohol Use Questionnaire (AUDIT-C) 1. How often do you have a drink containing alcohol?: Never 3. How often do you have six or more drinks on one occasion?: Never Total Score: 0 ANTON-7 AMB Questionnaire ANTON-7 Date ANTON - 7 assessed: 02/11/24 Feeling nervous, anxious, or on edge: 3 = Nearly every day Not being able to stop or control worryin = More than half the days Worrying too much about different things: 2 = More than half the days Trouble relaxin = More than half the days Being so restless that it is hard to sit still: 1 = Several days Becoming easily annoyed or irritable: 1 = Several days Feeling afraid as if something awful might happen: 2 = More than half the days Total ANTON-7 score (0-4 normal; 5-9 mild; 10-14 moderate; 15-21 severe): 13 Source: Developed by Drs. Hollis Burrell, Tiff Crystal, Ignacio Forbes and colleagues, with an educational yashira from [employer]. Review of Systems Const Denies chills and Denies fever(s) ENT Denies epistaxis and Denies nasal discharge Card Denies chest pain Resp Denies chest congestion, Denies cough and Denies hemoptysis GI Denies diarrhea and Denies nausea Skin/Breast Denies rash Neuro Reports no additional complaints Psych Reports no additional complaints Endo Reports no additional complaints Physical exam (Primary Care) Vital Signs: Last Vital Signs Pulse 73 06/06/24 14:07 BP 128/80 06/06/24 14:07 Pulse Ox 99 06/06/24 14:07 Oxygen Delivery Method Room Air 06/06/24 14:07 BMI result Body Mass Index 32.6 Tobacco/Smoking Status: Tobacco use Status Tobacco use date assessed 02/11/24 06/06/24 14:02 Patient Tobacco Use Status Never used Tobacco 06/06/24 14:02 e-Cigarette/Vaping Use Never Used 06/06/24 14:02 PHQ-9: PHQ-9 Score PHQ-9: Total score 11 06/06/24 14:02 Depression Screening Interpretation: Positive Depression Screening Follow-up: Existing condition and In treatment Thrive Assessment: Date of Thrive Assessment Date Thrive assessed 06/03/24 06/06/24 14:02 Currently or been in a relationship where the following occur: No concerns reported Const General: cooperative, comfortable and no acute distress Orientation/consciousness: patient oriented x3 HENMT Head: Yes normocephalic Eyes General: appearance normal, both eyes and all related structures Neck Neck: Yes supple Resp Effort & Inspection: normal respiratory effort, no cough and no stridor Cardio Rhythm: regular rhythm Heart sounds: S1 normal heart sound present and S2 normal heart sound present GI Other: Abdominal exam is benign Auscultation: normal bowel sounds Skin General skin exam: turgor normal Neuro General: patient oriented x3, tone normal and moves all extremities Extrem Right lower extremity: no edema Left lower extremity: no edema Coding Level of Care Code Est Pt Level 3 (09241) Diagnoses Panic anxiety syndrome F41.0 Abdominal cramping R10.9 Epigastric pain R10.13 Assessment & Plan Assessment & Plan (1) Panic anxiety syndrome: Code(s): F41.0 - Panic disorder [episodic paroxysmal anxiety] Category: Medical (2) Abdominal cramping: Code(s): R10.9 - Unspecified abdominal pain Category: Medical (3) Epigastric pain: Code(s): R10.13 - Epigastric pain Category: Medical Plan Patient is 23-year-old female with a long history of anxiety and panic attacks Came in today with mother Patient was seen before I did start her on Lexapro which she took it only for 3 days and then stopped because it made her stomach pains worse Patient usually have stomach pain off and on which is unrelated to eating Sometimes in the epigastric area which does respond to Tums and sometimes feel like cramping all over the abdomen We discussed the possibility of acid reflux and IBS I have sent omeprazole 20 mg tablet patient is to start that 1 tablet at night And then introduced dicyclomine 20 minute before meals in a week's time. Once the stomach pains are better Patient is to introduce citalopram at night to control anxiety She has few more tablets of lorazepam, instructed patient to take only half as needed And do not drive especially on the high we or work with machine while taking the lorazepam. We will set up telemedicine visit for follow-up in 4 weeks. Medications: New citalopram Take it at night 10 mg PO DAILY 30 tabs 0RF Anxiety omeprazole 10 mg PO DAILY 30 caps 0RF Epigastric pain dicyclomine 20 mg PO BID 30 days 30 tabs 0RF Abdominal cramping
[2024-06-06 14:07] VITALS: BP 128/80; PULSE 73; O2SAT 99; BMI 32.6
--- OUTSIDE RECORDS SUMMARY | 2024-06-06 14:09 | XMS_ITS | Encounter Summary ---
Author Organization [facility] Address [address] [place] [address] Phone Care Team Providers Care Oil Well Services Supervisor Name Role Phone Mercedes Moreno CONTENT PUBLISHER Primary Care Provider [phone] Encounter Details Date Type Department Care Team (Late st Contact Info) Description 09/09/2011 Conversion Encounter [facility] [address] [place] [address] Social History Tobacco Use Types Packs/Day Years Used Date Smoking Tobacco: Never Assessed Comments Unknown Sex and Gender Information Value Date Recorded Sex Assigned at Not on file Legal Sex Female 6:22 PM EDT Gender Identity Not on file Sexual Orientation Not on file documented as of this encounter Plan of Treatment Not on file documented as of this encounter Visit Diagnoses Not on filedocumented in this encounter Care Teams Oil Well Services Supervisor Relationship Specialty Start Date End Date Mercedes Moreno NP [address] [place] [address] PCP - General Pediatrics 10/20/22 documented as of this encounter
--- OUTSIDE RECORDS SUMMARY | 2024-06-06 14:09 | XMS_ITS | Clinical Summary ---
Author Organization [facility] Address [address] [place] [address] Phone Care Team Providers Care Freight Manager Name Role Phone Brandie Giraldo MD Primary Care Provider [phone] Allergies Active Allergy Reactions Criticality Noted Date Comments Penicillins High 09/06/2023 Medications Medication Sig Dispensed Refills Start Date End Date Status acetaminophen (TYLENOL) 500 mg tablet Take 1 tablet (500 mg total) by mouth every 6 (six) hours if needed (Pain). 01/06/2024 Active albuterol HFA (PROAIR HFA ; PROVENTIL HFA ; VENTOLIN HFA) 90 mcg/actuation inhaler Inhale 2 puffs by mouth every 4 (four) hours if needed (Cough, Wheezing or Shortness of Breath). 09/29/2023 Active betamethasone, augmented, (DIPROLENE) 0.05 % ointment Apply topically 2 (two) times a day. 2 weeks 09/29/2023 09/23/2024 Active famotidine (PEPCID) 40 mg tablet Take 1 tablet (40 mg total) by mouth at bedtime as needed for heartburn. 01/06/2024 Active fexofenadine (ARIS) 180 mg tablet Take 1 tablet (180 mg total) by mouth 1 (one) time each day if needed (SOB). 09/29/2023 Active naproxen (NAPROSYN) 500 mg tablet Take 1 tablet (500 mg total) by mouth 2 (two) times a day with meals. 01/06/2024 Active senna (SENOKOT) 8.6 mg tablet Take 1 tablet (8.6 mg total) by mouth every other day. Active Family History Medical History Relation Name Comments Diabetes Father Heart attack Father Heart attack Paternal Grandfather Heart attack Paternal Grandmother Other cancer Paternal Grandmother Relation Name Status Comments Father Paternal Grandfather Paternal Grandmother Social History Tobacco Use Types Packs/Day Years Used Date Smoking Tobacco: Never Smokeless Tobacco: Never Alcohol Use Standard Drinks/Week Comments Never 0 (1 standard drink = 0.6 oz pur e alcohol) Sex and Gender Information Value Date Recorded Sex Assigned at Not on file Gender Identity Not on file Sexual Orientation Not on file Obstetrics History Last Filed Vital Signs Vital Sign Reading Time Taken Comments Blood Pressure 124/78 01/06/2024 10:56 AM EDT Sitting R Arm Pulse 88 01/06/2024 10:56 AM EDT Temperature - - Respiratory Rate - - Oxygen Saturation - - Inhaled Oxygen Concentration - - Weight 87.7 kg (193 lb 6.4 oz) 01/06/2024 10:56 AM EDT Height 162.6 cm (5' 4 ) 01/06/2024 10:5 6 AM EDT Body Mass Index 33.2 01/06/2024 10:56 AM EDT Plan of Treatment Health Maintenance Due Date Last Done Comments Pneumococcal Vaccine: Pediat rics (0 to 5 Years) and At-Risk Patients (6 to 64 Years) (1 of 2 - PCV) 2004 HPV Vaccines (1 - 3-dose series) 2013 DTaP,Tdap,and Td Vaccines (1 - Tdap) 2017 Hepatitis B Vaccines (1 of 3 - 19+ 3-dose series) 2017 Cervical Cancer Screening: P ap Smear 11/01/2019 Depression Screening 12/27/2023 HIV Screening 12/27/2023 Hepatitis C Screening 12/27/2023 Social Influencers of Health Screening 12/27/2023 COVID-19 Vaccine (2023-2 5 season) 2024 Influenza Vaccine (#1) 2024 HIB Vaccines Aged Out No longer eligi ble based on patient's age to complete this topic Hepatitis A Vaccines Aged Out No long er eligible based on patient's age to complete this topic IPV Vaccines Aged Out No longer eligi ble based on patient's age to complete this topic MMR Vaccines Aged Out No longer eligi ble based on patient's age to complete this topic Meningococcal ACWY Vaccine Aged Out N o longer eligible based on patient's age to complete this topic RSV Immunization Patients Un juan 20 months Aged Out No longer eligible b ased on patient's age to complete this topic Varicella Vaccines Aged Out No longer eligible based on patient's age to complete this topic Care Teams Freight Manager Relationship Specialty Start Date End Date Brandie Giraldo MD PCP - General 09/06/23
--- OUTSIDE RECORDS SUMMARY | 2024-06-06 14:09 | XMS_ITS | Encounter Summary ---
Author Organization [facility] Address [address] [place] [address] Phone Care Team Providers Care Market Research Manager Name Role Phone Mercedes Moreno NP Primary Care Provider [phone] Reason for Visit * Reason Comments Med Refill Encounter Details Date Type Department Care Team (Late st Contact Info) Description 06/12/2018 Refill [facility] [address] [place] [address] [place] [address] Laisha Burton MD [address] [place] [address] Social History Tobacco Use Types Packs/Day Years [...] on filedocumented in this encounter Care Teams Market Research Manager Relationship Specialty Start Date End Date Mercedes Moreno NP [address] [place] [address] [place] [address] PCP - General Pediatrics 10/20/22 documented as of this encounter
--- OUTSIDE RECORDS SUMMARY | 2024-06-06 14:09 | XMS_ITS | Clinical Summary ---
Author Organization [facility] Address [address] [place] [address] Phone Care Team Providers Care Profiling Machine Set Up Operator Tool Name Role Phone Mercedes Moreno NP Primary Care Provider [phone] Allergies Active Allergy Reactions Criticality Noted Date Comments Penicillins Hives 10/20/2016 Medications hydrocortisone 1 % ointmentIndicati ons:Atopic dermatitis, unspecified type Apply topically 2 (two) times a day as needed for rash. 28 g 3 3 Active levonorgestrel-e thinyl estradiol (Aviane) 0.1-20 MG-MCG per tabletIndication s:PCOS (polycystic ovarian syndrome) Take 1 tablet by mouth daily. 84 tablet 1 3 Active Active Problems Problem Noted Date Diagnosed Date History of PCOS 05/27/2022 Human papilloma virus (HPV) vaccination declined 11/18/2021 Patellofemoral dysfunction of right knee 022 Overview (11/18/2021): Patellofemoral overload dx'ed by LILLIANA 2020. Influenza vaccine refused 02/07/2019 Flexural eczema 05/25/2016 Overview (02/07/2019): Eczema (691.8) Onset: 05/25/2016 Added by: Laisha Burton Overweight 05/25/2016 Overview (02/07/2019): Overweight (278.02) Onset: 05/25/2016 Added by: Laisha Burton Resolved Problems Problem Noted Date Diagnosed Date Resolved Date Absence of menstruation 07/16/2017 08/0 06/2020 Overview (02/07/2019): Secondary amenorrhea (626.0) Onset: 07/16/2017 Added by: Laisha Burton Immunizations Name Administration Dates Next Due DTaP 5 11/16/2003, 1,05/23/1999, 999,01/03/1999 Hep B, ped/adol 03/11/2000,05/23/1999,1998 Hib (PRP-T) 03/11/2000, 0,03/11/1999, 999 IPV 11/16/2003, 1,03/11/1999, 999 Influenza, injectable, trivalent 01/24/2009 MMR 11/16/2003,11/24/1999 Meningococcal Conj (Menactra) MCV4P 02/07/2019,0 12/20/2012 Tdap 11/20/2020,11/11/2010 Varicella 11/11/2010,11/24/1999 Family History Medical History Relation Name Comments No Known Problems Brother 1 Juan Pablo No Known Problems Brother 2 Nash Diabetes Father Scot Heart disease (Premature) Father Scot Hyperlipidemia Father Scot No Known Problems Mother No No Known Problems Sister Liseth Relation Name Status Comments Brother 1 Juan Pablo Alive Brother 2 Nash Alive Father Scot Alive Mother No Alive Sister Liseth Alive Social History Tobacco Use Types Packs/Day Years Used Date Smoking Tobacco: Never Assessed Hunger/Food Answer Date Recorded In the last 12 months, did y ou or your family ever eat less than you felt you should because there wasn't enough money for food? No 11/18/2021 Stable Housing Answer Date Recorded Are you worried that in the next 2 months you may not have stable housing? No 11/18/2021 Transportation Concerns Answer Date Rec orded In the last 12 months, have you or your family ever had to go without healthcare because you didn't have a way to get there? No 11/18/2021 Hazards in Home Answer Date Recorded Think about the place you li ve. Do you have problems with any of the following? Pests (mice or roaches), mold, no/not working smoke detectors, water leaks, no window guards. No 2021 Financing Utilities Answer Date Recorde d In the last 12 months, has t he electric, gas, oil, or water company threatened to shut off your services in your home? No 11/18/2021 Safety at Home Answer Date Recorded Are you or your family worried about feeling saf e in your home? No 11/18/2021 Outside Support Answer Date Recorded Do you feel that you need mo re support from other people or programs to help you care for yourself or your family? No 11/18/2021 Understanding Health Concerns Answer Da te Recorded Do you need help understandi ng your or your child's healthcare needs (diagnosis, medications, plan, etc.)? No 11/18/2021 Financing Health Concerns Answer Date R ecorded In the last 12 months, was t here a time when your child needed to see a doctor or get medications or supplies but could not because of cost? No 11/18/2021 Missing School or Work Answer Date Freddie rded Did you or your child miss s chool or work because of a health problem that could have been avoided? No 11/18/2021 Comments No Sex and Gender Information Value Date Recorded Sex Assigned at Not on file Legal Sex Female 6:22 PM EDT Gender Identity Not on file Sexual Orientation Not on file Last Filed Vital Signs Vital Sign Reading Time Taken Comments Blood Pressure 140/82 11/18/2021 10:43 AM EDT Pulse 90 11/18/2021 10:43 AM EDT Temperature 36.6 ??C (97.9 ??F) 11/18/2021 10:43 AM E DT Respiratory Rate - - Oxygen Saturation - - Inhaled Oxygen Concentration - - Weight 98.9 kg (218 lb 1.6 oz) 11/18/2021 10:43 AM EDT Height 163.2 cm (5' 4.25 ) 11/18/2021 10:43 AM E DT Body Mass Index 37.15 11/18/2021 10:43 AM EDT Plan of Treatment Health Maintenance Due Date Last Done Comments HPV Vaccines (1 - 3-dose series) 2013 Influenza Vaccines (#1) 2023 01/24/2009 COVID-19 Vaccine ( season) 2024 04/04/2021, 08/08/2020, 07/17/2020 DTaP,Tdap,and Td Vaccines (8 - Td or Tdap) 11/20/2030 11/20/2020, 11/11/2010, 11/16/2003, Additional history exists HIB Vaccines Completed 03/11/2000, 05/04, 03/11/1999, Additional history exists Hepatitis B Vaccines Completed 03/11/2000, 05/23/1999, 1998 IPV Vaccines Completed 11/16/2003, 06/03, 03/11/1999, Additional history exists MMR Vaccines Completed 11/16/2003, 11/24/1999 Varicella Vaccines Completed 11/11/2010, 11/24/1999 Meningococcal Vaccine Aged Out 02/07/2019, 013 No longer eligible based on patient's age to complete this topic Hepatitis A Vaccines Aged Out No long er eligible based on patient's age to complete this topic Men B Vaccine Aged Out No longer elig ible based on patient's age to complete this topic Pneumococcal Vaccine Aged Out No long er eligible based on patient's age to complete this topic Procedures * Due to [place] [employer] law, this organization might not be sharing sensitive test results. Procedure Name Priority Date/Time Associated Diagnosis Comments CHLAMYDIA AND GONORRHEA, AMPLIFIED Routine 02/07/2019 11:43 AM EDT Well adult exam from Last 3 Months or Most Recently Relevant to Health Maintenance Results * Due to [place] [employer] law, this organization might not be sharing sensitive test results. * Chlamydia and Gonorrhea, Amplified (02/07/2019 11:43 AM EDT) Chlamydia Trachomatis, DNA Probe NEGATIVE (NEG) [facility] Comment: No Chlamydia Trachomatis RNA detected in this patient's sample ? (REFERENCE RANGE/NORMAL VALUE: NOT DETECTED) ? Note: This test uses payroll consultant- mediated amplification method to detect rRNA from C. Trachomatis URINE GC AMP PROBE NEGATIVE (NEG) [facility] Comment: No Neisseria Gonorrhoeae RNA detected in this patient's sample ? (REFERENCE RANGE/NORMAL VALUE: NOT DETECTED) ? NOTE: This test uses payroll consultant-mediated amplification method to detect rRNA from N.Gonorrhoeae. A negative result does not preclude infection. In the case of a negative urine result, testing of an endocervical(female) or urethral (male) specimen is recommended if there is high clinical suspicion of infection. Due to very high sensitivity of Nucleic Acid Amplification Test, false positive results may occur. Therefore, specimen handling is extremely important. In patients in whom the disease is unlikely, additional sample for testing should be considered after an initial positive result. The performance characteristics of this test have not been evaluated in children. The Aptima Combo2 assay is not intended for the evaluation of suspected sexual abuse or for other medico-legal indications. The ordering provider should assess if the patient had consensual sex without risk of sexual abuse. Consult the [facility] if needed. Contact phone number . Therapeutic failure or success cannot be determined with the Aptima Combo2 assay since nucleic acid may persist following appropriate antimicrobial therapy. The Centers for Disease Control and Prevention (CDC) recommends confirmatory retesting using culture or a different nucleic acid amplification test when positive results occur, if indicated. Testing performed or reported by [facility], a Service of [facility], [address] [place] [address] [place] [address] Urine 02/07/2019 11:4 3 AM EDT 02/07/2019 6:43 PM EDT us Laisha Burton MD LAB MICROBIOLOGY - GENERAL ORDER NUZHAT Final Result [facility] from Last 3 Months or Most Recently Relevant to Health Maintenance Insurance [facility] [employer] Care Teams Profiling Machine Set Up Operator Tool Relationship Specialty Start Date End Date Mercedes Moreno NP [address] [place] [address] PCP - General Pediatrics 10/20/22
== END 2024-06-06 14:31 | disposition home or self-care (01) ==
PROVIDERS: PCP Internal Medicine; Visit Provider Internal Medicine
DX: F41.0 Panic disorder [episodic paroxysmal anxiety] (principal); R10.9 Unspecified abdominal pain; R10.13 Epigastric pain

== ENCOUNTER 2024-07-06 08:30 | Outpatient (AMB) | payer OTHER, SELFPAY ==
--- NOTE | 2024-07-06 08:33 | A.OFFPC_ITS ---
Intake Visit Reasons: 4 weeks f/up Allergies Penicillins [PCN] Allergy (Verified 07/06/24 08:34) Unknown Medication List - Last Reconciled 07/06/24 by Jacky Hickey MD dicyclomine 20 mg PO BID 30 days escitalopram oxalate (Lexapro) 5 mg PO DAILY lorazepam 0.5 mg PO DAILY PRN omeprazole 10 mg PO DAILY Tobacco use date assessed: 07/06/24 Dental Screening Dental Screen Date: 07/06/24 HPI 4 weeks f/up HPI Details History - The patient is a 23-year-old female pr esenting with an evaluation of her current psychiatric treatment regimen. - She reports experiencing daily anxiety with reduced intensity while on her current medication, escitalopram 5 mg - The patient last used lorazepam three weeks ago, currently managing anxiety symptoms without the Lorazepa,. - She reports an improvement in stomach symptoms and attributes this to fasting. - The patient has not taken prescribed d icyclomine and omeprazole, medications recommended for cramping and gastroesophageal symptoms, respectively. Problem List - Generalized Anxiety Disorder - Gastroesophageal Reflux Disease Patient Instructions - Start taking 10 mg escitalopram tablet s daily, new script sent - Continue fasting if it helps with stom ach symptoms. - For stomach cramping post-fasting, jonh e dicyclomine 20 minutes before meals. - For heartburn or upper abdominal pain, use omeprazole as needed. Review of Systems - General: No fever no chills - Neurological: No headaches no dizziness - Ear nose throat: No sore throat no hearing difficulty no ear pain - Cardiovascular: No syncope, no chest pain, no palpitations - Gastrointestinal: No nausea vomiting or diarrhea - Endocrine: No polyuria polydipsia no heat intolerance - Genitourinary: No dysuria , no blood in urine [facility] Family History Father Heart disease Diabetes Paternal Grandfather Diabetes Heart disease Paternal Grandmother Diabetes Heart disease Maternal Grandfather Diabetes Heart disease Maternal Grandmother Heart disease Diabetes Social History Household Members: Family Housing: House Alcohol intake: current Alcohol intake frequency: holidays/special occasions only Patient Tobacco Use Status: Never used Tobacco e-Cigarette/Vaping Use: Never Used Current occupational status: employed Cognitive needs: No Hearing needs: No Vision needs: Yes Questionnaire Thrive Questionnaire Date Thrive assessed: 06/03/24 ANTON-7 AMB Questionnaire ANTON-7 Date ANTON - 7 assessed: 02/11/24 Source: Developed by Drs. Hollis Burrell, Tiff Crystal, Ignacio Forbes and colleagues, with an educational yashira from [employer]. Physical exam (Primary Care) Tobacco/Smoking Status: Tobacco use Status Tobacco use date assessed 07/06/24 07/06/24 08:34 Patient Tobacco Use Status Never used Tobacco 07/06/24 08:34 e-Cigarette/Vaping Use Never Used 07/06/24 08:34 Thrive Assessment: Date of Thrive Assessment Date Thrive assessed 06/03/24 07/06/24 08:34 Telehealth Telehealth Telehealth Platform: [employer] Location of provider rendering services: practice address Location of patient: address on file Patient Identification confirmed using: Name, : Yes Telehealth method: voice only Patient verbally consented to treatment: Yes Patient verbally consented to billing insurance company: Yes Patient informed of any privacy concerns related to visit: Yes Minutes spent on Phone/Video with Pt.: 13 Coding Level of Care Code Tele Est Pt Level 3 (15318) Diagnoses Panic anxiety syndrome F41.0 Abdominal cramping R10.9 Epigastric pain R10.13 Assessment & Plan Assessment & Plan (1) Panic anxiety syndrome: Code(s): F41.0 - Panic disorder [episodic paroxysmal anxiety] Category: Medical (2) Abdominal cramping: Code(s): R10.9 - Unspecified abdominal pain Category: Medical (3) Epigastric pain: Code(s): R10.13 - Epigastric pain Category: Medical Plan History - The patient is a 69-year-old female presenting with follow-up for cholesterol and blood pressure medication management. - She is tolerating the hyperlipidemia medication without difficulty. she was switched to atrovastatin 20 mg, when she couldnt take simvastatin - Reports intermittent headaches, noting improvement in comparison to previous occurrences but with occasional mild pain. she is now taking atenolol 25 mg daily - The patient confirms adherence to both the cholesterol and antihypertensive medications provided for management of essential hypertension and associated headaches. Problem List - Hyperlipidemia - Essential Hypertension Patient Instructions - Continue taking both cholesterol and blood pressure medications as prescribed. - Contact the office or seek care if there are any new or worsening symptoms. - A refill for your medications will be sent as planned. Medications: Changed From escitalopram oxalate (Lexapro) 5 mg PO DAILY 30 tabs 0RF To escitalopram oxalate 10 mg PO DAILY 90 days 90 tabs 0RF
--- OUTSIDE RECORDS SUMMARY | 2024-07-06 08:53 | XMS_ITS | Encounter Summary ---
Author Organization [facility] Address [address] [place] [address] Phone Care Team Providers Care Assessment Director Name Role Phone Mercedes Moreno BLASTING CONTRACT MAN Primary Care Provider [phone] Encounter Details Date Type Department Care Team (Late st Contact Info) Description 09/09/2011 Conversion Encounter [facility] [address] [facility] [address] Social History Tobacco Use Types Packs/Day Years [...] on filedocumented in this encounter Care Teams Assessment Director Relationship Specialty Start Date End Date Mercedes Moreno NP [address] [place] [address] PCP - General Pediatrics 10/20/22 documented as of this encounter
--- OUTSIDE RECORDS SUMMARY | 2024-07-06 08:53 | XMS_ITS | Encounter Summary ---
Author Organization [facility] Address [address] [place] [address] Phone Care Team Providers Care Petrography Teacher Name Role Phone Mercedes Moreno NP Primary Care Provider [phone] Reason for Visit * Reason Comments Med Refill Encounter Details Date Type Department Care Team (Late st Contact Info) Description 06/12/2018 Refill [facility] [address] [place] [address] [place] [address] Laisha Burton MD [address] [place] [address] Social History Tobacco Use Types Packs/Day Years [...] on filedocumented in this encounter Care Teams Petrography Teacher Relationship Specialty Start Date End Date Mercedes Moreno NP [address] [place] [address] [place] [address] PCP - General Pediatrics 10/20/22 documented as of this encounter
--- OUTSIDE RECORDS SUMMARY | 2024-07-06 08:53 | XMS_ITS | Clinical Summary ---
Author Organization [facility] Address [address] [place] [address] Phone Care Team Providers Care Emergency Management System Director Name Role Phone Brandie Giraldo MD Primary Care Provider [phone] Allergies Active Allergy Reactions Criticality Noted Date Comments Penicillins High 09/06/2023 Medications acetaminophen (TYLENOL) 500 mg tablet Take 1 tablet (500 mg total) by mouth every 6 (six) hours if needed (Pain). 4 Active albuterol HFA (PROAIR HFA ; PROVENTIL HFA ; VENTOLIN HFA) 90 mcg/actuation inhaler Inhale 2 puffs by mouth every 4 (four) hours if needed (Cough, Wheezing or Shortness of Breath). 4 Active betamethasone, augmented, (DIPROLENE) 0.05 % ointment Apply topically 2 (two) times a day. 2 weeks 4 09/24/19 25 Active famotidine (PEPCID) 40 mg tablet Take 1 tablet (40 mg total) by mouth at bedtime as needed for heartburn. 4 Active fexofenadine (ARIS) 180 mg tablet Take 1 tablet (180 mg total) by mouth 1 (one) time each day if needed (SOB). 4 Active naproxen (NAPROSYN) 500 mg tablet Take 1 tablet (500 mg total) by mouth 2 (two) times a day with meals. 4 Active senna (SENOKOT) 8.6 mg tablet Take [...] drink = 0.6 oz pur e alcohol) Comments Unknown Sex and Gender Information Value Date Recorded Sex Assigned at Not on file Legal Sex Female 8:19 PM EST Gender Identity Not on file Sexual Orientation [...] of 3 - 19+ 3-dose series) 2017 Pneumococcal Vaccine: Pediat rics (0 to 5 Years) and At-Risk Patients (6 to 64 Years) (1 of 2 - PCV) 2017 Cervical Cancer Screening: P ap Smear 11/01/2019 Depression Screening 12/27/2023 HIV Screening 12/27/2023 Hepatitis C Screening 12/27/2023 Social Influencers of Health Screening 12/27/2023 COVID-19 Vaccine ( - 2023-2 5 season) 2024 Influenza Vaccine (#1) 2024 [...] patient's age to complete this topic Meningococcal B Vacine Aged Out No lo nger eligible based on patient's age to complete this topic RSV Immunization Patients Un juan 20 months Aged Out No longer eligible b ased on patient's age to complete this topic Varicella Vaccines Aged Out No longer eligible based on patient's age to complete this topic Insurance [facility] Care Teams Emergency Management System Director Relationship Specialty Start Date End Date Brandie Giraldo MD PCP - General 09/06/23
--- OUTSIDE RECORDS SUMMARY | 2024-07-06 08:54 | XMS_ITS | Clinical Summary ---
Author Organization [facility] Address [address] [place] [id number] Phone Care Team Providers Care Crewman Armoured Personnel Carrier M113 Name Role Phone Mercedes Moreno NP Primary Care Provider [phone] Allergies Active Allergy Reactions Criticality Noted Date [...] Onset: 07/16/2017 Added by: Laisha Burton Immunizations Immunization Administration Dates Next Due DTaP 5 11/16/2003, [...] complete this topic Procedures * Due to [place] St[employer] law, this organization might not be sharing sensitive test results. Procedure Name Priority Date/Time Associated Diagnosis Comments CHLAMYDIA AND GONORRHEA, AMPLIFIED Routine 02/07/2019 11:43 AM EDT Well adult exam from Last 3 Months or Most Recently Relevant to Health Maintenance Results * Due to [place] St[place] law, this organization might not be sharing sensitive test results. * Chlamydia and Gonorrhea, Amplified (02/07/2019 11:43 AM EDT) Chlamydia Trachomatis, DNA Probe NEGATIVE (NEG) [facility] Comment: No Chlamydia Trachomatis RNA detected in this patient's sample ? (REFERENCE RANGE/NORMAL VALUE: NOT DETECTED) ? Note: This test uses insurance analyst- mediated amplification method to detect rRNA from C. Trachomatis URINE GC AMP PROBE NEGATIVE (NEG) [facility] Comment: No Neisseria Gonorrhoeae RNA detected in this patient's sample ? (REFERENCE RANGE/NORMAL VALUE: NOT DETECTED) ? NOTE: This test uses insurance analyst-mediated amplification method to detect rRNA from N.Gonorrhoeae. [...] without risk of sexual abuse. Consult the [facility] if needed. Contact phone number . Therapeutic failure or success cannot be determined with the Aptima Combo2 assay since nucleic acid may persist following appropriate antimicrobial therapy. The Centers for Disease Control and Prevention (CDC) recommends confirmatory retesting using culture or a different nucleic acid amplification test when positive results occur, if indicated. Testing performed or reported by [facility], a Service of [facility], [address] [place] [address] [place] [address] Urine 02/07/2019 11:4 3 AM EDT 02/07/2019 6:43 PM EDT us Laisha Burton MD LAB MICROBIOLOGY - GENERAL ORDER NUZHAT Final Result [facility] from Last 3 Months or Most Recently Relevant to Health Maintenance Insurance [facility] PUBLIC DIRECT Care Teams Crewman Armoured Personnel Carrier M113 Relationship Specialty Start Date End Date Mercedes Moreno NP [address] [place] [address] PCP - General Pediatrics 10/20/22
== END 2024-07-06 09:01 | disposition home or self-care (01) ==
PROVIDERS: PCP Internal Medicine; Visit Provider Internal Medicine
DX: R10.9 Unspecified abdominal pain (principal); F41.0 Panic disorder [episodic paroxysmal anxiety]; R10.13 Epigastric pain

== ENCOUNTER → 2024-07-06 08:30 | Outpatient (BNVA) | payer OTHER, SELFPAY | PROVIDERS: PCP Internal Medicine; Visit Provider Internal Medicine ==

== ENCOUNTER 2024-09-07 08:41 | Outpatient (AMB) | payer OTHER, SELFPAY ==
--- NOTE | 2024-09-07 08:44 | A.OFFPC_ITS ---
Intake Visit Reasons: Discuss Med Allergies Penicillins [PCN] Allergy (Verified 09/07/24 08:45) Unknown Medication List - Last Reconciled 09/07/24 by Jacky Hickey MD dicyclomine 20 mg PO BID 30 days escitalopram oxalate 5 mg PO DAILY 90 days lorazepam 0.5 mg PO DAILY PRN omeprazole 10 mg PO DAILY Tobacco use date assessed: 09/07/24 Dental Screening Dental Screen Date: 09/07/24 Did you have a dental visit in the last 12 months?: Yes Did you have a dental problem in the last 6 months where you did not have access to dental care?: No Was dental information given to patient?: Patient has dentist HPI Discuss Med HPI Details History - The patient is a 23-year-old female pr esenting with medication management for Generalized Anxiety Disorder. - She has a long history of anxiety - She has been taking Escitalopram at a dose of 10 mg for anxiety management and wants to reduce the dosage. - The patient feels that the medication has been beneficial but desires to eventually discontinue its use, starting with a dose reduction to evaluate her response. - She has been utilizing additional copi ng strategies, such as therapy and the development of coping skills. - The patient has not taken Lorazepam re cently, indicating improvement in anxiety symptoms while on Escitalopram. Problem List - Generalized Anxiety Disorder - Long-term use of Escitalopram Patient Instructions - Consider reducing the current medicati on (Escitalopram) from 10 mg to 5 mg if the tablet can be safely split. - Monitor anxiety symptoms closely after the dose reduction, and return to the full dose if symptoms worsen. - Involve an external observer, such as a family member, to help monitor for any changes in symptoms. - If a reduced dose is tolerated well, t he patient should notify for a prescription adjustment to 5 mg tablet form. - Continue engaging in therapy and using coping skills to manage anxiety. Review of Systems - General: No fever no chills - Neurological: No headaches no dizziness - Ear nose throat: No sore throat no hearing difficulty no ear pain - Cardiovascular: No syncope, no chest pain, no palpitations - Gastrointestinal: No nausea vomiting or diarrhea PFSH Family History Father Heart disease Diabetes Paternal Grandfather Diabetes Heart disease Paternal Grandmother Diabetes Heart disease Maternal Grandfather Diabetes Heart disease Maternal Grandmother Heart disease Diabetes Social History Household Members: Family Housing: House Alcohol intake: current Alcohol intake frequency: holidays/special occasions only Patient Tobacco Use Status: Never used Tobacco e-Cigarette/Vaping Use: Never Used Current occupational status: employed Cognitive needs: No Hearing needs: No Vision needs: Yes Questionnaire Thrive Questionnaire Date Thrive assessed: 06/03/24 AUDIT C Alcohol Use Questionnaire (AUDIT-C) 1. How often do you have a drink containing alcohol?: Never 3. How often do you have six or more drinks on one occasion?: Never Total Score: 0 Score Reviewed/Action Taken: Yes ANTON-7 AMB Questionnaire ANTON-7 Date ANTON - 7 assessed: 09/07/24 Feeling nervous, anxious, or on edge: 0 = Not at all Not being able to stop or control worryin = Not at all Worrying too much about different things: 0 = Not at all Trouble relaxin = Not at all Being so restless that it is hard to sit still: 0 = Not at all Becoming easily annoyed or irritable: 0 = Not at all Feeling afraid as if something awful might happen: 0 = Not at all Total ANTON-7 score (0-4 normal; 5-9 mild; 10-14 moderate; 15-21 severe): 0 Source: Developed by Drs. Hollis Burrell, Tiff Crystal, Ignacio Forbes and colleagues, with an educational yashira from [employer]. ANTON-7 Assessment Billing ANTON-7 Assessment Tool: ANTON-7 Assessment 13135 Physical exam (Primary Care) Tobacco/Smoking Status: Tobacco use Status Tobacco use date assessed 09/07/24 09/07/24 08:46 Patient Tobacco Use Status Never used Tobacco 09/07/24 08:44 e-Cigarette/Vaping Use Never Used 09/07/24 08:44 Thrive Assessment: Date of Thrive Assessment Date Thrive assessed 06/03/24 09/07/24 08:44 Telehealth Telehealth Telehealth Platform: [facility] Location of provider rendering services: practice address Location of patient: address on file Patient Identification confirmed using: Name, : Yes Telehealth method: voice only Patient verbally consented to treatment: Yes Patient verbally consented to billing insurance company: Yes Patient informed of any privacy concerns related to visit: Yes Minutes spent on Phone/Video with Pt.: 12 Coding Level of Care Code Tele Est Pt Level 3 (46281) Diagnoses Panic anxiety syndrome F41.0 Additional Codes ANTON-7 Assessment Billing - ANTON-7 Assessment Tool: ANTON-7 Assessment 00465 ([id number]) Assessment & Plan Assessment & Plan (1) Panic anxiety syndrome: Code(s): F41.0 - Panic disorder [episodic paroxysmal anxiety] Category: Medical Plan History - The patient is a 23-year-old female presenting with medication management for Generalized Anxiety Disorder. - She has a long history of anxiety - She has been taking Escitalopram at a dose of 10 mg for anxiety management and wants to reduce the dosage. - The patient feels that the medication has been beneficial but desires to eventually discontinue its use, starting with a dose reduction to evaluate her response. - She has been utilizing additional coping strategies, such as therapy and the development of coping skills. - The patient has not taken Lorazepam recently, indicating improvement in anxiety symptoms while on Escitalopram. Problem List - Generalized Anxiety Disorder - Long-term use of Escitalopram Patient Instructions - Consider reducing the current medication (Escitalopram) from 10 mg to 5 mg if the tablet can be safely split. - Monitor anxiety symptoms closely after the dose reduction, and return to the full dose if symptoms worsen. - Involve an external observer, such as a family member, to help monitor for any changes in symptoms. - If a reduced dose is tolerated well, the patient should notify for a prescription adjustment to 5 mg tablet form. - Continue engaging in therapy and using coping skills to manage anxiety. Medications: Changed From escitalopram oxalate 10 mg PO DAILY 90 days 90 tabs 0RF To escitalopram oxalate 5 mg PO DAILY 90 days 90 tabs 0RF
--- OUTSIDE RECORDS SUMMARY | 2024-09-07 08:59 | XMS_ITS | Encounter Summary ---
Author Organization [facility] Address [address] [place] [address] Phone Care Team Providers Care Measuring Machine Operator Name Role Phone Mercedes Moreno POLICE RADIO DISPATCHER Primary Care Provider [phone] Encounter Details Date Type Department Care Team (Late st Contact Info) Description 09/09/2011 Conversion Encounter [facility] [address] [place] [address] Social History Tobacco Use Types Packs/Day Years [...] on filedocumented in this encounter Care Teams Measuring Machine Operator Relationship Specialty Start Date End Date Mercedes Moreno NP [address] [place] [address] PCP - General Pediatrics 10/20/22 documented as of this encounter
--- OUTSIDE RECORDS SUMMARY | 2024-09-07 08:59 | XMS_ITS | Clinical Summary ---
Author Organization [facility] Address [address] [place] [address] Phone Care Team Providers Care Powertrain Design Engineer Name Role Phone Brandie Giraldo MD Primary Care Provider [phone] Allergies Active Allergy Reactions Criticality Noted Date [...] Influencers of Health Screening 12/27/2023 COVID-19 Vaccine (1 - 2023-2 5 season) 2024 Influenza Vaccine (Season Ended) 2025 HIB Vaccines Aged Out No longer eligi [...] age to complete this topic Meningococcal B Vaccine Aged Out No l onger eligible based on patient's age to complete this topic RSV Immunization Patients Un juan 20 months Aged Out No longer eligible b ased on patient's age to complete this topic Varicella Vaccines Aged Out No longer eligible based on patient's age to complete this topic Insurance [facility] Care Teams Powertrain Design Engineer Relationship Specialty Start Date End Date Brandie Giraldo MD PCP - General 09/06/23
--- OUTSIDE RECORDS SUMMARY | 2024-09-07 08:59 | XMS_ITS | Clinical Summary ---
Author Organization [facility] Address [address] [place] [address] Phone Care Team Providers Care Teacher Of The Deaf/Hard Of Hearing Name Role Phone Mercedes Moreno NP Primary Care Provider [phone] Allergies Active Allergy Reactions Criticality Noted Date [...] complete this topic Procedures * Due to [place] Collective [employer] law, this organization might not be sharing sensitive test results. Procedure Name Priority Date/Time Associated Diagnosis Comments CHLAMYDIA AND GONORRHEA, AMPLIFIED Routine 02/07/2019 11:43 AM EDT Well adult exam from Last 3 Months or Most Recently Relevant to Health Maintenance Results * Due to [place] Collect[employer] law, this organization might not be sharing sensitive test results. * Chlamydia and Gonorrhea, Amplified (02/07/2019 11:43 AM EDT) Chlamydia Trachomatis, DNA Probe NEGATIVE (NEG) [facility] Comment: No Chlamydia Trachomatis RNA detected in this patient's sample ? (REFERENCE RANGE/NORMAL VALUE: NOT DETECTED) ? Note: This test uses laboratory technologist- mediated amplification method to detect rRNA from C. Trachomatis URINE GC AMP PROBE NEGATIVE (NEG) [facility] Comment: No Neisseria Gonorrhoeae RNA detected in this patient's sample ? (REFERENCE RANGE/NORMAL VALUE: NOT DETECTED) ? NOTE: This test uses laboratory technologist-mediated amplification method to detect rRNA from N.Gonorrhoeae. [...] without risk of sexual abuse. Consult the [facility] if needed. Contact phone number . Therapeutic failure or success cannot be determined with the Aptima Combo2 assay since nucleic acid may persist following appropriate antimicrobial therapy. The Centers for Disease Control and Prevention (CDC) recommends confirmatory retesting using culture or a different nucleic acid amplification test when positive results occur, if indicated. Testing performed or reported by [facility], a Service of [facility], [address] [place] [address] [place] [address] Urine 02/07/2019 11:4 3 AM EDT 02/07/2019 6:43 PM EDT us Laisha Burton MD LAB MICROBIOLOGY - GENERAL ORDER NUZHAT Final Result [facility] from Last 3 Months or Most Recently Relevant to Health Maintenance Insurance [facility] PUBLIC DIRECT Care Teams Teacher Of The Deaf/Hard Of Hearing Relationship Specialty Start Date End Date Mercedes Moreno NP [address] [place] [address] PCP - General Pediatrics 10/20/22
--- OUTSIDE RECORDS SUMMARY | 2024-09-07 08:59 | XMS_ITS | Encounter Summary ---
Author Organization [facility] Address [address] [place] [address] Phone Care Team Providers Care Ship/Rec/Doc Control Name Role Phone Mercedes Moreno NP Primary Care Provider [phone] Reason for Visit * Reason Comments Med Refill Encounter Details Date Type Department Care Team (Late st Contact Info) Description 06/12/2018 Refill [facility] [address] [place] [address] [place] [address] Laisha Burton MD [address] [place] [address] Social History Tobacco Use Types Packs/Day Years [...] on filedocumented in this encounter Care Teams Ship/Rec/Doc Control Relationship Specialty Start Date End Date Mercedes Moreno NP [address] [place] [address] [place] [address] PCP - General Pediatrics 10/20/22 documented as of this encounter
== END 2024-09-07 09:22 | disposition home or self-care (01) ==
LOC: HO.HMCC 08:41
PROVIDERS: PCP Internal Medicine; Visit Provider Internal Medicine
DX: F41.0 Panic disorder [episodic paroxysmal anxiety] (principal)

== ENCOUNTER → 2024-09-07 08:41 | Outpatient (BNVA) | payer OTHER, SELFPAY | PROVIDERS: PCP Internal Medicine; Visit Provider Internal Medicine | DX: F41.0 Panic disorder [episodic paroxysmal anxiety] (principal); Z79.899 Other long term (current) drug therapy | CPT/HCPCS: 96127 ==

== ENCOUNTER → 2024-09-21 08:47 | Outpatient (BNVA) | payer OTHER, SELFPAY | PROVIDERS: PCP Internal Medicine; Visit Provider Internal Medicine | DX: Z13.89 Encounter for screening for other disorder (principal) ==

== ENCOUNTER 2025-02-14 13:54 | Outpatient (AMB) | payer BC, SELFPAY ==
[2025-02-14 13:59] VITALS: BP 120/80; PULSE 80; O2SAT 99; BMI 36.2
--- NOTE | 2025-02-14 13:59 | A.OFFPC_ITS ---
Vital Signs 02/14/25 13:59 Height 5 ft 4 in Weight 211 lb BMI 36.2 BP 120/80 Blood Pressure Location Rt brachial Position Sitting Pulse 80 Pulse Source Pulse Oximeter Pulse Oximetry (%) 99 Intake Visit Reasons: Annual PE - see comments-no insurance [place] Required: No Accompanied by: Self / Same As Patient Allergies Penicillins (PCN) Allergy (Verified 02/14/25 14:04) Unknown Medication List - Last Reconciled 02/14/25 by Jacky Hickey MD escitalopram oxalate 10 mg PO DAILY 90 days lorazepam 0.5 mg PO DAILY PRN Tobacco use date assessed: 09/07/24 Dental Screening Dental Screen Date: 09/07/24 HPI Annual PE - see comments-no insurance HPI Details History of Present Illness The patient is a 24-year-old female presenting with a physical examination and evaluation of current health status. Severe Anxiety Disorder: - Patient reports improvement in anxiety symptoms. - Takes Lexapro 10 mg daily, which seems effective for her. - Previously took Lorazepam but has not needed it recently. Obesity: - Current BMI is 36.2. - Patient is actively working on weight management with currently unspecified interventions. Health Maintenance - Tetanus vaccine administered in 2020 - Encouraged to undergo annual blood maddi ts to monitor kidney function and liver enzymes - and to have a visit with OBGYN which p atient declined Patient Instructions - Undergo non-fasting lab tests today - Continue taking prescribed medication for anxiety - Schedule follow-up in six months - Continue efforts in weight management Review of Systems - General: No fever no chills - Neurological: No headaches no dizzin ess - Ear nose throat: No sore throat no hearing difficulty no ear pain - Cardiovascular: No syncope, no chest pain, no palpitations - Gastrointestinal: No nausea vomiting or diarrhea - Endocrine: No polyuria polydipsia no heat intolerance - Genitourinary: No dysuria - Skin: No new complaints Physical Exam General: Cooperative, healthy appearing, comfortable, no acute distress Orientation: Patient oriented x3 Limitations: None Head: Normal to inspection Ears: Within normal limit visually Nose: Normal external nose present Face and sinus: Normal facial exam Eyes: Appearance normal, extraocular movement intact pupils reactive Neck: Normal visual inspection and supple Respiratory: Normal respiratory effort and able to speak in complete sentences. Clear to auscultation, no stridor Cardiovascular: S1 and S2 RRR GI: Normal to inspection. Soft to palpation and nontender Skin: Turgor normal, no acute findings Neuro: Patient oriented x3, motor sensory intact, balance intact, tandem pass Extremities: Normal to inspection, full range of motion . [facility] Surgical History No pertinent past surgical history Family History Father Heart disease Diabetes Paternal Grandfather Diabetes Heart disease Paternal Grandmother Diabetes Heart disease Maternal Grandfather Diabetes Heart disease Maternal Grandmother Heart disease Diabetes Social History Household Members: Family Housing: House Alcohol intake: current Alcohol intake frequency: holidays/special occasions only Patient Tobacco Use Status: Never used Tobacco e-Cigarette/Vaping Use: Never Used Current occupational status: employed Cognitive needs: No Hearing needs: No Vision needs: Yes Questionnaire Thrive Questionnaire Date Thrive assessed: 06/03/24 I am a: Patient What is your living situation today?: I have a steady place to live Within the past 12 months, did the food you bought not last and you didn't have the money to get more?: Never true Within the past 12 months, did you worry whether your food would run out before you got money to buy more?: Never true Do you have trouble paying for medicines?: No Do you have trouble getting transportation to medical appointments?: No Do you have trouble paying your heating and electricity bill?: No Do you have trouble taking care of your child, family member or friend?: No Do you have trouble with day-to-day activities such as bathing, preparing meals, shopping, managing finances, etc.?: No Are you currently unemployed and looking for a job?: No Are you interested in more education?: No Please select the resources that you would like help with: None Currently or been in a relationship where the following occur: No concerns reported THRIVE Score: 0 ANTON-7 AMB Questionnaire ANTON-7 Date ANTON - 7 assessed: 09/07/24 Source: Developed by Drs. Hollis Burrell, Tiff Crystal, Ignacio Forbes and colleagues, with an educational yashira from [employer]. Physical exam (Primary Care) Vital Signs: Last Vital Signs Pulse 80 02/14/25 13:59 BP 120/80 02/14/25 13:59 Pulse Ox 99 02/14/25 13:59 BMI result Body Mass Index 36.2 Tobacco/Smoking Status: Tobacco use Status Tobacco use date assessed 09/07/24 02/14/25 14:01 Patient Tobacco Use Status Never used Tobacco 02/14/25 14:01 e-Cigarette/Vaping Use Never Used 02/14/25 14:01 Thrive Assessment: Date of Thrive Assessment Date Thrive assessed 06/03/24 02/14/25 14:01 Currently or been in a relationship where the following occur: No concerns reported Coding Level of Care Code Est Pt Level 3 (31658) Est Pt Prev Care 18-39y(75424) Diagnoses Encounter for general adult medical examination with abnormal findings Z00.01 Panic anxiety syndrome F41.0 Class 1 obesity due to excess calories without serious comorbidity with body mass index (BMI) of 34.0 to 34.9 in adult E66.811; E66.09; Z68.34 Body mass index: BMI 34.0-34.9 Obesity classification: adult class 1 (BMI 30 - 34.9) Serious obesity comorbidity presence: without serious comorbidity Assessment & Plan Assessment & Plan (1) Encounter for general adult medical examination with abnormal findings: Code(s): Z00.01 - Encounter for general adult medical examination with abnormal findings Category: Medical (2) Panic anxiety syndrome: Code(s): F41.0 - Panic disorder [episodic paroxysmal anxiety] Category: Medical (3) Obesity due to excess calories: Code(s): E66.09 - Other obesity due to excess calories Category: Medical Qualifiers: Body mass index: BMI 34.0-34.9 Obesity classification: adult class 1 (BMI 30 - 34.9) Serious obesity comorbidity presence: without serious comorbidity Qualified Code(s): E66.811 - Obesity, class 1; E66.09 - Other obesity due to excess calories; Z68.34 - Body mass index [BMI] 34.0-34.9, adult Plan Severe Anxiety Disorder: - Patient reports improvement in anxiety symptoms. - Takes Lexapro 10 mg daily, which seems effective for her. - Previously took Lorazepam but has not needed it recently. Obesity: - Current BMI is 36.2. - Patient is actively working on weight management with currently unspecified interventions. Health Maintenance - Tetanus vaccine administered in 2020 - Encouraged to undergo annual blood tests to monitor kidney function and liver enzymes - and to have a visit with OBGYN which patient declined Patient Instructions - Undergo non-fasting lab tests today - Continue taking prescribed medication for anxiety - Schedule follow-up in six months - Continue efforts in weight management . Orders: Orders Complete Blood Count Auto Diff Today E66.09 - Other obesity due to excess calories, E66.811 - Obesity, class 1, F41.0 - Panic disorder [episodic paroxysmal anxiety], Z00.01 - Encounter for general adult medical examination with abnormal findings, Z68.34 - Body mass index [BMI] 34.0-34.9, adult Comprehensive Met. Panel Today E66.09 - Other obesity due to excess calories, E66.811 - Obesity, class 1, F41.0 - Panic disorder [episodic paroxysmal anxiety], Z00.01 - Encounter for general adult medical examination with abnormal findings, Z68.34 - Body mass index [BMI] 34.0-34.9, adult LDL Cholesterol Direct Today E66.09 - Other obesity due to excess calories, E66.811 - Obesity, class 1, F41.0 - Panic disorder [episodic paroxysmal anxiety], Z00.01 - Encounter for general adult medical examination with abnormal findings, Z68.34 - Body mass index [BMI] 34.0-34.9, adult TSH reflex Free T4 Today E66.09 - Other obesity due to excess calories, E66.811 - Obesity, class 1, F41.0 - Panic disorder [episodic paroxysmal anxiety], Z00.01 - Encounter for general adult medical examination with abnormal findings, Z68.34 - Body mass index [BMI] 34.0-34.9, adult Medications: Refilled escitalopram oxalate 10 mg PO DAILY 90 tabs 1RF 90 days
--- OUTSIDE RECORDS SUMMARY | 2025-02-14 17:42 | XMS_ITS ---
Author Name [facility] Organization Unknown Encounters Encounter Type Encounter Reason Primary Diagnosis Location Date [facility] 01/07/2024 [facility] 11/09/2023 Care Team Organization Name Specialty Phone Email Start Date End [facility] 12/08/2023 02/05/2024
--- OUTSIDE RECORDS SUMMARY | 2025-02-14 17:42 | XMS_ITS | Encounter Summary ---
Author Organization [facility] Address [address] [place] [id number] Phone Care Team Providers Care Horticulture Instructor Name Role Phone Mercedes Moreno NP Primary Care Provider Reason for Visit * Reason Comments Med Refill Encounter Details Date Type Department Care Team (Late st Contact Info) Description 06/12/2018 Refill [facility] [address] [place] [address] [place] [address] Laisha Burton MD [address] [place] [address] Social History Tobacco Use Types Packs/Day Years [...] on filedocumented in this encounter Care Teams Horticulture Instructor Relationship Specialty Start Date End Date Mercedes Moreno NP [address] [place] [address] [place] [address] PCP - General Pediatrics 10/20/22 documented as of this encounter
--- OUTSIDE RECORDS SUMMARY | 2025-02-14 17:42 | XMS_ITS | Clinical Summary ---
Author Organization [facility] Address [address] [place] [address] Phone Care Team Providers Care Sludge Filtration Attendant Name Role Phone Mercedes Moreno NP Primary Care Provider [phone] Allergies Active Allergy Reactions Criticality Noted Date [...] 90 11/18/2021 10:43 AM EDT Temperature 36.6 C (97.9 F) 11/18/2021 10:43 AM EDT Respiratory Rate - - Oxygen Saturation - - Inhaled Oxygen Concentration - - Weight 98.9 kg (218 lb 1.6 oz) 11/18/2021 10:43 AM EDT Height 163.2 cm (5' 4.25 ) 11/18/2021 10:43 AM E DT Body Mass Index 37.15 11/18/2021 10:43 AM EDT Plan of Treatment Health Maintenance Due Date Last Done Comments HPV Vaccines (1 - 3-dose series) 2013 Influenza Vaccines (#1) 2024 01/24/2009 COVID-19 Vaccine ( season) 2025 04/04/2021, 08/08/2020, 07/17/2020 DTaP,Tdap,and Td Vaccines (8 [...] complete this topic Procedures * Due to [place] GMI law, this organization might not be sharing sensitive test results. Procedure Name Priority Date/Time Associated Diagnosis Comments CHLAMYDIA AND GONORRHEA, AMPLIFIED Routine 02/07/2019 11:43 AM EDT Well adult exam from Last 3 Months or Most Recently Relevant to Health Maintenance Results * Due to [place] GMI law, this organization might not be sharing sensitive test results. * Chlamydia and Gonorrhea, Amplified (02/07/2019 11:43 AM EDT) Chlamydia Trachomatis, DNA Probe NEGATIVE (NEG) [facility] Comment: No Chlamydia Trachomatis RNA detected in this patient's sample (REFERENCE RANGE/NORMAL VALUE: NOT DETECTED) Note: This test uses marketing budget analyst- mediated amplification method to detect rRNA from C. Trachomatis URINE GC AMP PROBE NEGATIVE (NEG) [facility] Comment: No Neisseria Gonorrhoeae RNA detected in this patient's sample (REFERENCE RANGE/NORMAL VALUE: NOT DETECTED) NOTE: This test uses marketing budget analyst-mediated amplification method to detect rRNA from [...] without risk of sexual abuse. Consult the [facility] if needed. Contact phone number . Therapeutic failure or success cannot be determined with the Aptima Combo2 assay since nucleic acid may persist following appropriate antimicrobial therapy. The Centers for Disease Control and Prevention (CDC) recommends confirmatory retesting using culture or a different nucleic acid amplification test when positive results occur, if indicated. Testing performed or reported by [facility], a Service of [facility], [facility] [place] [address] Urine 02/07/2019 11:4 3 AM EDT 02/07/2019 6:43 PM EDT us Laisha Burton MD LAB MICROBIOLOGY - GENERAL ORDER NUZHAT Final Result [facility] from Last 3 Months or Most Recently Relevant to Health Maintenance Insurance [facility] [employer] Care Teams Sludge Filtration Attendant Relationship Specialty Start Date End Date Mercedes Moreno NP [address] [facility] [place] [facility] [place] [address] PCP - General Pediatrics 10/20/22
--- OUTSIDE RECORDS SUMMARY | 2025-02-14 17:42 | XMS_ITS | Clinical Summary ---
Author Organization [facility] Address [address] [place] [address] Phone Care Team Providers Care Cardiac Nurse Practitioner Name Role Phone Brandie Giraldo MD Primary Care Provider [phone] Allergies Active Allergy Reactions Criticality Noted Date [...] Wheezing or Shortness of Breath). 4 Active famotidine (PEPCID) 40 mg tablet Take [...] Cervical Cancer Screening: P ap Smear 11/01/2019 HIV Screening 12/27/2023 Hepatitis C Screening 12/27/2023 Social Influencers of Health Screening 12/27/2023 Depression Screening 05/03/2024 COVID-19 Vaccine (1 - 2023-2 5 season) 2025 Influenza Vaccine (#1) 2025 RSV Immunization Adult Patie nts (1 - 1-dose 75+ series) 2073 HIB Vaccines Aged Out No longer eligi [...] patient's age to complete this topic Pneumococcal Vaccine: Pediat rics (0 to 5 Years) and At-Risk Patients (6 to 49 Years) Aged Out No longer eligible b ased on patient's age to complete this topic RSV Immunization Patients Un juan 20 months Aged Out No longer eligible b ased on patient's age to complete this topic Varicella Vaccines Aged Out No longer eligible based on patient's age to complete this topic Insurance [facility] Care Teams Cardiac Nurse Practitioner Relationship Specialty Start Date End Date Brandie Giraldo MD PCP - General 09/06/23
--- OUTSIDE RECORDS SUMMARY | 2025-02-14 17:42 | XMS_ITS | Encounter Summary ---
Author Organization [facility] Address [address] [place] [phone] Phone Care Team Providers Care Produce Buyer Name Role Phone Mercedes Moreno [employer] Primary Care Provider [phone] Encounter Details Date Type Department Care Team (Late st Contact Info) Description 09/09/2011 Conversion Encounter [facility] [address] [place] [address] Social History Tobacco Use Types Packs/Day Years [...] on filedocumented in this encounter Care Teams Produce Buyer Relationship Specialty Start Date End Date Mercedes Moreno NP [address] [place] [address] PCP - General Pediatrics 10/20/22 documented as of this encounter
--- OUTSIDE RECORDS SUMMARY | 2025-02-14 17:42 | XMS_ITS | Clinical Summary ---
Author Organization [facility] Address [address] [place] [address] Phone Care Team Providers Care Cost Specialist Name Role Phone Jacky Hickey MD Primary Care Provider [phone] Social History Tobacco Use Types Packs/Day Years Used Date Smoking Tobacco: Never Assessed Education Answer Date Recorded Are you interested in more education? Not on preeti e 05/16/2024 Are you concerned about learning? Not on file 05/16/2024 No 05/16/2024 No 05/16/2024 Digital Access Answer Date Recorded No 05/16/2024 No 05/16/2024 Reliable internet access at home? Not on file 05/16/2024 Device with a working camera? Not on file Comments Unknown Sex and Gender Information Value Date Recorded Sex Assigned at Not on file Legal Sex Female 4:10 PM EST Gender Identity Not on file Sexual Orientation Not on file Plan of Treatment Health Maintenance Due Date Last Done Comments Adult Td,Tdap Booster 1998 DEPRESSION SCREENING 2010 SMOKING Hx and SMOKELESS TOB ACCO SCREENING 11/01/2011 HPV VACCINES (1 - 3-dose series) 2013 HEPATITIS C SCREENING 2016 HIV ONE-TIME SCREENING (18-6 5 YEARS) 2016 PAP SMEAR 11/01/2019 INFLUENZA VACCINE (#1) 2024 COVID-19 VACCINE (2024-2 6 season) 2025 HEPATITIS A VACCINES Aged Out No long er eligible based on patient's age to complete this topic HIB VACCINES Aged Out No longer eligi ble based on patient's age to complete this topic MENINGOCOCCAL VACCINES (ACWY) Aged Out No longer eligible based on patient's age to complete this topic MENINGOCOCCAL VACCINES (B) Aged Out N o longer eligible based on patient's age to complete this topic PNEUMOCOCCAL VACCINES (0-49 years) Aged Out No longer eligible based on patient's age to complete this topic Medical Devices Not on file [place] [address] [address] [place] [address] [facility] [place] [address] [facility] Care Teams Cost Specialist Relationship Specialty Start Date End Date Jacky Hickey MD [address] [place] [address] [place] [address] PCP - General Internal Medicine 05/16/24 Additional Source Comments The information contained in this document represents components of the legal health record. It is not the complete legal health record.[facility]
== END 2025-02-14 14:46 | disposition home or self-care (01) ==
PROVIDERS: PCP Internal Medicine; Visit Provider Internal Medicine
DX: Z00.00 Encounter for general adult medical examination without abnormal findings (principal); F41.0 Panic disorder [episodic paroxysmal anxiety]; E66.811 Obesity, class 1; Z68.34 Body mass index [BMI] 34.0-34.9, adult